=== PATIENT | female | born 1955 | race Caucasian/White ===

== ENCOUNTER 2018-07-28 15:14 | Outpatient (CLI) | payer BC, SELFPAY ==
--- NOTE | 2018-07-28 15:07 | DI.RAD_ITS ---
SYMPTOM/DIAGNOSIS: COUGH R/O PNA, H/O COPD, ACUTE BRONCHITIS WITH BRONCHOSPASM J20.9 CHEST X-RAY: PA and lateral. Comparison is 06/18/13 Heart size and pulmonary vasculature are within normal limits. The lungs are clear and well expanded. No effusions or pneumothoraces are identified. There are degenerative changes seen in the spine. IMPRESSION: No acute pulmonary process.
== END 2018-07-28 15:34 ==
PROVIDERS: PCP Nurse Practitioner Family; Visit Provider Nurse Practitioner Family
DX: R05 Cough (principal); J20.9 Acute bronchitis, unspecified; J44.9 Chronic obstructive pulmonary disease, unspecified
CPT/HCPCS: 71046

== ENCOUNTER 2018-11-02 08:50 | Emergency (ER) | payer MEDICARE, BC, SELFPAY ==
[2018-11-02 08:54] VITALS: BP 142/79; PULSE 86; RESP 18; TEMP 36.5; O2SAT 96
--- NOTE | 2018-11-02 09:36 | ED.GENADUL_ITS ---
Discharge Plan Disposition Patient Disposition: HOME Discharge Details Chief Complaint: Allergic Clinical Impression: Pruritic rash, Allergic reaction Primary Care Provider: Jie Thorpe ED Provider: Gray Roque Home Meds and New Rx's Prescriptions: New prednisone 20 mg tablet 40 mg PO DAILY Qty: 8 RF: 0 epinephrine [EpiPen] 0.3 mg/0.3 mL auto-injector 0.3 mg IM ONCE PRN (Reason: anaphylaxis) Qty: 1 RF: 0 Continued aspirin [Aspir-81] 81 MG tablet,delayed release (DR/EC) 81 mg PO DAILY RF: 0 multivitamin [Daily Vitamin] 1 EACH tablet 1 ea PO DAILY RF: 0 Probiotic 1 EACH capsule 1 ea PO DAILY RF: 0 albuterol sulfate [ProAir HFA] 8.5 GM HFA aerosol inhaler 1 - 2 puff Inhalation Q4-6H PRN Qty: 1 RF: 3 Symbicort 10.2 GM HFA aerosol inhaler 2 puff Inhalation BID Qty: 3 RF: 3 omeprazole 20 mg capsule,delayed release(DR/EC) 20 mg PO DAILY Qty: 90 RF: 3 atorvastatin 40 mg tablet 40 mg PO DAILY Qty: 90 RF: 3 Ultima [place] D3 capsule 2 cap PO DAILY RF: 0 diphenhydramine HCl [Benadryl] 25 mg Capsule 25 mg PO Q4H PRNRF: 0 Discontinued ranitidine HCl 150 mg tablet 150 mg PO BID Qty: 60 RF: 0 Shingrix (PF) 50 mcg/0.5 mL suspension for reconstitution 50 mcg IM .COMPLEX Qty: 1 RF: 1 loratadine 10 MG tablet 10 mg PO DAILY RF: 0 Discharge Instructions Instructions: Acute Rash (ED), General Allergic Reaction (ED) Additional Instructions: Please take prednisone as prescribed. Use epinephrine as prescribed for severe anaphylaxis. Stop taking ranitidine. Should not be given shingles immunization until further testing is performed. Please contact your primary care physician to arrange follow-up be seen on Saturday or Saturday. Return to the ER immediately for any worsening or new concerning symptoms. Referrals: Jie Thorpe NP [Primary Care Provider] - Discharge Data Discharge Date/Time-TO BE ENTERED AT DEPARTURE: 11/02/18 10:02 Medical Decision Making 63-year-old female presents 5 days status post receiving shingles vaccination and also starting ranitidine with rash that she has had for the past 4 days. Rash is severely pruritic, localized diffusely to her arms, back, abdomen chest, head, legs. No oropharyngeal swelling, shortness of breath or wheeze. She otherwise feels well. No fever. Unclear etiology for rash. Consider reaction to shingles vaccination versus allergic reaction to ranitidine. Patient has had an allergic reaction to ranitidine in the past. Patient was instructed to stop ranitidine and hold any additional shingles vaccination until further testing can be performed. Patient will be started on prednisone 60 mg today and continued on 40 mg for the next 4 days. She was instructed to follow-up with her primary care physician on Saturday. She understands importance of timely follow-up. She also understands that she should return to the emergency department immediately should she have any worsening symptoms including shortness of breath or swelling in her mouth or throat. He was prescribed an EpiPen and I discussed use with her. Usual customary discharge instructions were provided. HPI General Mode of arrival: ambulatory . Date/Time Provider Initiated Documentation: 11/02/18 09:16 . Limitations to Documentation: no limitations . Information obtained by: patient . HPI Narrative: 63-year-old female presents 5 days status post receiving shingles vaccination and also starting ranitidine with cc rash that she has had for the past 4 days. Rash is red and severely pruritic, localized diffusely to her arms, back, abdomen chest, head, legs. No modifiers. No associated swelling of the lips, mouth or throat. No difficulty swallowing. No shortness of breath or wheeze. No nausea or vomiting. No fever. Related Data Home Medications Medication Instructions Recorded Confirmed aspirin [Aspir-81] 81 mg PO DAILY tab 12/15/12 11/03/18 multivitamin [Daily Vitamin] 1 ea PO DAILY 07/15/14 11/03/18 Probiotic 1 ea PO DAILY 05/25/16 11/03/18 Ultima [place] D3 2 cap PO DAILY 08/14/16 11/03/18 Symbicort 2 puff INHALATION BID #3 inhaler 12/05/17 11/03/18 albuterol sulfate [ProAir HFA] 1 - 2 puff INHALATION Q4-6H PRN #1 12/05/17 11/03/18 inhaler omeprazole 20 mg capsule,delayed 20 mg PO DAILY #90 tab 07/11/18 11/03/18 release atorvastatin 40 mg tablet 40 mg PO DAILY #90 tab-cap 09/05/18 11/03/18 diphenhydramine HCl [Benadryl] 25 mg PO Q4H PRN 11/02/18 11/03/18 epinephrine [EpiPen] 0.3 mg IM ONCE PRN #1 each 11/02/18 11/03/18 prednisone 40 mg PO DAILY #8 tab 11/02/18 11/03/18 Previous Rx's Medication Instructions Recorded Symbicort 2 puff INHALATION BID #3 inhaler 12/05/17 albuterol sulfate [ProAir HFA] 1 - 2 puff INHALATION Q4-6H PRN #1 12/05/17 inhaler omeprazole 20 mg capsule,delayed 20 mg PO DAILY #90 tab 07/11/18 release atorvastatin 40 mg tablet 40 mg PO DAILY #90 tab-cap 09/05/18 epinephrine [EpiPen] 0.3 mg IM ONCE PRN #1 each 11/02/18 prednisone 40 mg PO DAILY #8 tab 11/02/18 Allergies Allergy/AdvReac Type Severity Reaction Status Date / Time Sulfa (Sulfonamide Allergy Intermediate Itching Unverified 11/03/18 10:28 Antibiotics) ranitidine Allergy Hives Unverified 11/03/18 10:28 varicella-zoster immune Allergy ? hives Unverified 11/03/18 10:28 globulin (h montelukast [From Singulair] AdvReac Unverified 11/03/18 10:28 METALS Allergy Intermediate RASH Uncoded 11/03/18 10:28 General Stated Complaint: Allergic JEWEL: 3 Review of Systems Review of Systems All systems reviewed & are unremarkable except as noted in HPI and below Constitutional Denies fever(s) ENT Denies dysphagia Cardiovascular Denies dyspnea Respiratory Denies dyspnea Gastrointestinal Denies dysphagia Integumentary/Breasts Reports rash PFSH Social History Smoking/Tobacco Use Status: Former Tobacco Use Quit Date: 12/24/08 Pack-years: 46 Alcohol Intake: current Alcohol Intake frequency: 0-2 drinks per day Drug use: Never Substance use type: does not use Household members: spouse Pets and animals: No Sexually active: No Current gender identity: female Do you feel safe in your relationship?: Yes Exam Const General: cooperative and no acute distress HENMT Mouth: oral mucosae normal and moist mucous membranes Throat: posterior oropharynx normal Eyes Conjunctivae: normal conjunctivae Sclera: normal sclerae Neck Neck: trachea midline and supple Resp Auscultation: clear to auscultation bilaterally, no rales, no rhonchi and no wheezes Cardio Jugular venous pressure: no JVD Rate: regular rate and not tachycardic Rhythm: regular rhythm Skin Rashes: rashes noted (red hives on arms, legs, and torso) Neuro General: alert, awake and tone normal Extrem General: no edema Left upper extremity: shoulder/upper arm (no fluctuance or induration at immunization injection site) Course Vital Signs Temperature 36.5 C 11/02/18 08:54 Pulse 86 11/02/18 08:54 Respiratory Rate 18 11/02/18 08:54 Blood Pressure 142/79 H 11/02/18 08:54 Pulse Oximetry 96 11/02/18 08:54 Temperature 36.5 C 11/02/18 08:54 Temperature Source Temporal Artery Scan 11/02/18 08:54 Pulse 86 11/02/18 08:54 Respiratory Rate 18 11/02/18 08:54 Respiratory Effort Non-Labored 11/02/18 09:01 Respiratory Pattern Normal 11/02/18 09:01 Blood Pressure 142/79 H 11/02/18 08:54 Blood Pressure Position Sitting 11/02/18 08:54 Pulse Oximetry 96 11/02/18 08:54 Oxygen Delivery Method Room Air 11/02/18 08:54 Oxygen Flow Rate 0 11/02/18 08:54 Pain Level 0 11/02/18 08:54
[2018-11-02] MEDS: predniSONE 20 MG TAB 60 MG PO (09:40)
[2018-11-02 10:03] VITALS: BP 141/73; PULSE 90; RESP 18; O2SAT 94
--- NOTE | 2018-11-03 08:10 | PDOC.ERCMPRO ---
Care Management Progress Note 11/03-Dr. Connor Roque requested assistance with a PCP (Maurilio) f/u on Saturday/Saturday for allergic reaction. Referral faxed to [facility] this am.
== END 2018-11-02 10:02 | disposition home or self-care (01) ==
PROVIDERS: Emergency Provider Student in an Organized Health Care Education/Training Program; PCP Nurse Practitioner Family
DX: L29.9 Pruritus, unspecified (principal); T78.40XA Allergy, unspecified, initial encounter
CPT/HCPCS: 99283; J7512

== ENCOUNTER 2018-11-11 00:27 | Outpatient (CLI) | payer MEDICARE, BC, SELFPAY ==
--- NOTE | 2018-11-11 15:25 | DI.MAMMO_ITS ---
SYMPTOM/DIAGNOSIS: SCREENING, Z12.31 MAMMOGRAMS: Mammograms were interpreted according to the usual protocol including computer analysis with CAD system, tomosynthesis and C view imaging. Comparison is made with prior examinations. Breast density, Category B. No suspicious masses or microcalcifications are seen. There is no definite evidence of malignancy. IMPRESSION: Negative mammogram. Routine screening is recommended. Category 1. MQSA ASSESSMENT OF FINDINGS: Negative. Category 1. Patient will receive a letter notifying them of these results. BI-RADS category B. There are scattered areas of fibroglandular density.
--- NOTE | 2018-11-11 15:26 | DI.DEXA_ITS ---
SYMPTOM/DIAGNOSIS: F/U OSTEOPENIA, M85.88 DEXA SCAN: Routine examination. Comparison is made with 2010. The lateral view of the spine shows no compression deformities. Evaluation of the left hip shows a total T score of -2.1 and a Z score of -0.9. This compares with a total T score of -1.7 from 2010. This is consistent with osteopenia and an increased fracture risk. Evaluation of the lumbar spine shows a total T score of -2.3 and a Z score of -0.6. This compares with a total T score of -1.6 from 2010. This is also consistent with osteopenia. IMPRESSION: Osteopenia in the lumbar spine and left hip as described above.
== END 2018-11-11 00:47 ==
PROVIDERS: PCP Nurse Practitioner Family; Visit Provider Nurse Practitioner Family
DX: Z12.31 Encounter for screening mammogram for malignant neoplasm of breast (principal); M85.88 Other specified disorders of bone density and structure, other site
CPT/HCPCS: 77063; 77067; 77080

== ENCOUNTER 2019-04-24 08:34 | Outpatient (CLI) | payer MEDICARE, BC, SELFPAY ==
[2019-04-24 09:34] LABS: Anion Gap 10.2 mmol/L (3-11); BUN 15 mg/dL (7-18); CO2 26.8 mmol/L (21.0-32.0); CREATININE 0.62 mg/dL (0.55-1.02); Calcium 8.8 mg/dL (8.5-10.1); Calculated LDL 108 mg/dL; Chloride 105 mmol/L (98-107); Cholesterol 175 mg/dL (50-200); Glucose 98 mg/dL (70-100); HDL Cholesterol 42 mg/dL (40-60); Potassium 4.2 mmol/L (3.5-5.1); Sodium 142 mmol/L (136-145); Triglyceride 128 mg/dL (30-150)
[2019-04-27 11:52] LABS: HIV-1/2 Ag & Ab Screen Negative (NEGAT)
== END 2019-04-24 08:54 ==
PROVIDERS: PCP Nurse Practitioner Family; Visit Provider Nurse Practitioner Family
DX: E78.5 Hyperlipidemia, unspecified (principal); Z13.1 Encounter for screening for diabetes mellitus; Z11.4 Encounter for screening for human immunodeficiency virus [HIV]
CPT/HCPCS: 36415; 80048; 80061; 87389

== ENCOUNTER 2019-06-16 16:26 | Outpatient (CLI) | payer MEDICARE, BC, SELFPAY | END 2019-06-16 16:46 | PROVIDERS: PCP Nurse Practitioner Family; Visit Provider Nurse Practitioner Adult Health | DX: R49.0 Dysphonia (principal) | CPT/HCPCS: 36415; 84443 ==

== ENCOUNTER 2019-06-18 05:12 | Emergency (ER) | payer MEDICARE, BC, SELFPAY ==
[2019-06-18 05:19] VITALS: BP 158/84; PULSE 85; RESP 16; TEMP 36.8; O2SAT 96
--- NOTE | 2019-06-18 05:27 | ED.GENADUL_ITS ---
Discharge Plan Disposition Patient Disposition: HOME Condition: Good Discharge Details Chief Complaint: GenMedical Clinical Impression: Calculus of distal right ureter Primary Care Provider: Jie Thorpe ED Provider: Buster Milian Skippers Meds and New Rx's Prescriptions: New Hydrocodone/Apap 5/325, 4 Tab [[place] 5/325, 4 Tabs/Btl] 1 tab PO Q6H PRN (Reason: Pain, Severe) Qty: 4 RF: 0 ibuprofen 600 mg tablet 600 mg PO Q6H PRN (Reason: pain) Qty: 20 RF: 0 ondansetron 4 mg tablet,disintegrating 4 mg PO Q6H PRN (Reason: nausea and vomiting) Qty: 10 RF: 0 tamsulosin 0.4 mg capsule 0.4 mg PO DAILY Qty: 14 RF: 0 Continued aspirin [Aspir-81] 81 MG tablet,delayed release (DR/EC) 81 mg PO DAILY RF: 0 multivitamin [Daily Vitamin] 1 EACH tablet 1 ea PO DAILY RF: 0 Probiotic 1 EACH capsule 1 ea PO DAILY RF: 0 albuterol sulfate [ProAir HFA] 8.5 GM HFA aerosol inhaler 1 - 2 puff Inhalation Q4-6H PRN Qty: 1 RF: 3 atorvastatin 40 mg tablet 40 mg PO DAILY Qty: 90 RF: 3 Symbicort 160-4.5 mcg/actuation HFA aerosol inhaler 2 puff Inhalation BID Qty: 3 RF: 3 epinephrine [EpiPen] 0.3 mg/0.3 mL auto-injector 0.3 mg IM ONCE PRN (Reason: anaphylaxis) Qty: 1 RF: 0 Ultima [place] D3 capsule 2 cap PO DAILY RF: 0 diphenhydramine HCl [Benadryl] 25 mg Capsule 25 mg PO Q4H PRNRF: 0 omeprazole 40 mg capsule,delayed release(DR/EC) 40 mg PO DAILY RF: 0 Discharge Instructions Instructions: Hydrocodone/Acetaminophen (By mouth), Renal Colic (ED) Additional Instructions: You have a 5 mm distal ureteral stone which hopefully will pass on its own over the next couple of days. Please strain your urine. Please take tamsulosin once a day until stone has passed. Ibuprofen every 6 hours for pain. Ondansetron every 6 hours for nausea vomiting. Hydrocodone/acetaminophen if needed for severe pain. Contact Dr. Alaniz Saturday if you have not passed the stone over the weekend. Return to the ED if you develop fever, uncontrolled pain, persistent vomiting. Referrals: Yaw Alaniz MD [ [facility] STAFF PHYSICIAN] - Medical Decision Making Patient most likely with kidney stone. Rule out infection. IV established. Medications given for symptom relief. CBC and chemistry sent. Urinalysis ordered. Stone study ordered. CBC and chemistry are fine. Urine with blood but no evidence of infection. CT scan shows a 5 mm distal ureter stone with hydroureter and nephrosis. Patient much better with Toradol and Zofran. Minimal pain in the back at this point. Patient to be discharged home to follow-up with urology next week if she does not pass the stone over the next couple of days. She is given prescription for Flomax, Motrin, Zofran. Given first dose of Flomax here. Also discharged with 4 [place] tabs from here to use for severe pain. Information sheet on narcotics given and informed consent obtained. Patient instructed not to use Tylenol if taking [place]. Return to ED if fever, uncontrolled pain, vomiting. Lab Data Lab results reviewed: Yes I reviewed the patient's lab results. HPI General Mode of arrival: ambulatory . Date/Time Provider Initiated Documentation: 06/18/19 05:22 . Limitations to Documentation: no limitations . Information obtained by: patient and RN notes reviewed . HPI Narrative: Patient presents to ED with complaint of right low back/flank pain radiating to the front. Pain woke her up out of sleep. This been ongoing for about 3 hours. Severe, sharp, colicky. She has associated nausea, vomiting and diarrhea. She is sweaty and very uncomfortable. She had something similar quite some time ago. Thought to be kidney stone but never actually completely worked up. Denies chest pain or shortness of breath. Denies dysuria or hematuria that she is aware of. Related Data Home Medications Medication Instructions Recorded Confirmed aspirin [Aspir-81] 81 mg PO DAILY tab 12/15/12 06/18/19 multivitamin [Daily Vitamin] 1 ea PO DAILY 07/15/14 06/18/19 Probiotic 1 ea PO DAILY 05/25/16 06/18/19 Ultima [place] D3 2 cap PO DAILY 08/14/16 06/18/19 albuterol sulfate [ProAir HFA] 1 - 2 puff INHALATION Q4-6H PRN #1 04/12/18 10/24/19 inhaler atorvastatin 40 mg tablet 40 mg PO DAILY #90 tab-cap 09/05/18 06/18/19 diphenhydramine HCl [Benadryl] 25 mg PO Q4H PRN 11/02/18 06/18/19 budesonide-formoterol HFA 160 2 puff INHALATION BID #3 inhaler 02/25/19 06/18/19 mcg-4.5 mcg/actuation aerosol inhaler epinephrine 0.3 mg/0.3 mL 0.3 mg IM ONCE PRN #1 each 04/20/19 06/18/19 injection, auto-injector HYDROcodone/APAP 5/325, 4 tab 1 tab PO Q6H PRN #4 tab 06/18/19 [[place] 5/325, 4 tabs/btl] ibuprofen 600 mg PO Q6H PRN #20 tab 06/18/19 omeprazole 40 mg PO DAILY 06/18/19 06/18/19 ondansetron 4 mg PO Q6H PRN #10 tab 06/18/19 tamsulosin 0.4 mg PO DAILY #14 cap 06/18/19 Previous Rx's Medication Instructions Recorded albuterol sulfate [ProAir HFA] 1 - 2 puff INHALATION Q4-6H PRN #1 12/05/17 inhaler atorvastatin 40 mg tablet 40 mg PO DAILY #90 tab-cap 09/05/18 budesonide-formoterol HFA 160 2 puff INHALATION BID #3 inhaler 02/25/19 mcg-4.5 mcg/actuation aerosol inhaler epinephrine 0.3 mg/0.3 mL 0.3 mg IM ONCE PRN #1 each 04/20/19 injection, auto-injector HYDROcodone/APAP 5/325, 4 tab 1 tab PO Q6H PRN #4 tab 06/18/19 [[place] 5/325, 4 tabs/btl] ibuprofen 600 mg PO Q6H PRN #20 tab 06/18/19 ondansetron 4 mg PO Q6H PRN #10 tab 06/18/19 tamsulosin 0.4 mg PO DAILY #14 cap 06/18/19 Allergies Allergy/AdvReac Type Severity Reaction Status Date / Time Sulfa (Sulfonamide Allergy Intermediate Itching Unverified 06/11/19 08:53 Antibiotics) ranitidine Allergy Hives Unverified 06/11/19 08:53 varicella-zoster immune Allergy ? hives Unverified 06/11/19 08:53 globulin (h montelukast [From Singulair] AdvReac Unverified 06/11/19 08:53 METALS Allergy Intermediate RASH Uncoded 06/11/19 08:53 General Stated Complaint: GenMedical JEWEL: 3 Review of Systems Review of Systems Narrative: As documented in HPI otherwise negative as below. Const: no fever, chills, weakness Resp: no cough, SOB, pleuritic pain CV: no CP, diaphoresis, edema, syncope GI: abdominal pain, nausea, vomiting, diarrhea Neuro: no headache, numbness, focal weakness, confusion [facility] Medical History Adult BMI > 30 (Chronic) Alcohol use disorder (Acute) Chronic obstructive pulmonary disease, unspecified (Chronic 11/26/16) Gastroesophageal reflux disease (Chronic) EGD (Dr. Edge) 2010 normal Hyperlipidemia (Chronic 08/30/11) Mild persistent asthma without complication (Chronic 11/26/16) Mixed incontinence urge and stress (Chronic) Obstructive sleep apnea syndrome (Chronic 08/30/11) DR. 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 Félix Bronson, Dermatology, removed 09/2011. Scalp. Surgical History Colonoscopy - MAC (Resolved 08/15/16) History of lateral meniscus repair of left knee (Resolved) History of lateral meniscus repair of right knee (Resolved) Social History Smoking/Tobacco Use Status: Former Tobacco Use Quit Date: 12/24/08 Pack-years: 46 Alcohol Intake: current Alcohol Intake frequency: 0-2 drinks per day Drug use: Never Substance use type: does not use Caregiver/Support person: No Household members: spouse Number of Children: 2 Communication Needs: None Pets and animals: No Sexually active: No Current gender identity: female What type of physical activity do you participate in: other Details: Golfing Duration: other Details: 4 hours per game, once per week Seatbelt use: always Water heater temp set <120 deg: Yes Working smoke detector in home: Yes Fire extinguisher in home: Yes Carbon monox detector in home: Yes Firearms in home: No Do you feel safe at home: Yes Do you feel safe in your relationship?: Yes Exam Narrative Exam Narrative: Vitals: Afebrile. Elevated blood pressure otherwise normal vital signs and pulse oximetry. Const: Obese female unable to sit still, pacing. HEENT: NC/AT. Normal facial exam. Eyes: Normal conjunctiva and sclera. Neck: Supple. Trachea midline. Lungs: Normal respiratory effort. GI: Soft. NT/ND. No guarding or rebound. Back: No CVAT. Neuro: A+O x 3. CN grossly in tact. Good strength and no focal deficit. Ext: No C/C/E. Course Vital Signs Vital signs: Vital Signs Temperature 98.2 F 06/18/19 05:19 Pulse 85 06/18/19 05:19 Respiratory Rate 16 06/18/19 05:19 Blood Pressure 158/84 H 06/18/19 05:19 Pulse Oximetry 96 06/18/19 05:19 Temperature 98.2 F 06/18/19 05:19 Pulse 85 06/18/19 05:19 Respiratory Rate 16 06/18/19 05:19 Respiratory Effort 06/18/19 05:19 Respiratory Depth Normal 06/18/19 05:19 Respiratory Pattern Normal 06/18/19 05:19 Blood Pressure 158/84 H 06/18/19 05:19 Pulse Oximetry 96 06/18/19 05:19 Oxygen Delivery Method Room Air 06/18/19 05:19 Oxygen Flow Rate 0 06/18/19 05:19
[2019-06-18] MEDS: Ketorolac 30 MG/ML VIAL 15 MG IVP (05:30)
[2019-06-18] MEDS: Ondansetron 4 MG/2 ML VIAL IVP (05:31)
[2019-06-18 05:39] LABS: Bilirubin Negative (Negative); Blood Large (Negative); Clarity Clear (Clear); Glucose Negative (Negative); Ketones Negative (Negative); Leukocyte Esterase Negative (Negative); Nitrite Negative (Negative); Specific Gravity 1.025 (1.005-1.025); Urobilinogen 0.2 EU/dL (Up TO 0.2); pH 5.5 (5-8)
[2019-06-18 05:50] LABS: Epithelial Cells Negative HPF (Negative); RBC >50 (0-2); WBC 0-2 HPF (0-5)
[2019-06-18 05:51] LABS: Abs Immature Grans 0.02 k/cumm (0.0-0.09); Absolute Basophil Count 0.05 k/cumm (0.0-0.2); Absolute Eosinophil Count 0.13 k/cumm (0.0-0.7); Absolute Lymphocyte Count 1.47 k/cumm (1.2-3.4); Absolute Monocyte Count 0.48 k/cumm (0.11-0.7); Absolute Neutrophil Count 6.41 k/cumm (1.2-6.7); Basophils % 0.6; Eosinophils % 1.5; HCT 41.8 % (36.0-46.0); Immature Grans % 0.2; Lymphocytes % 17.2; Mean Corp. HGB Concentration 33.5 g/dL (32.0-36.0); Mean Corpuscular Hemoglobin 30.8 pg (27.0-33.0); Mean Corpuscular Volume 92.1 fL (80-95); Mean Platelet Volume 9.6 fL (8.0-11.0); Monocytes % 5.6; Neutrophils % 74.9; Platelet Count 314 x1000/uL (130-400); RBC 4.54 m/cumm (4.00-5.20); RBC Distribution Width 13.9 % (11.7-14.6); White Blood Cell Count 8.56 k/cumm (4.4-10.8)
[2019-06-18 05:51] LABS: Bacteria Negative HPF (Negative); C & S Indicated? No; Casts Negative LPF (Negative); Crystals Negative HPF (Negative); Mucus Negative (Negative); Other Cells Negative (Negative)
[2019-06-18 05:58] LABS: Anion Gap 9.2 mmol/L (3-11); BUN 23 mg/dL (7-18); CO2 27.8 mmol/L (21.0-32.0); CREATININE 0.77 mg/dL (0.55-1.02); Calcium 9.1 mg/dL (8.5-10.1); Chloride 105 mmol/L (98-107); Glucose 135 mg/dL (70-100); Sodium 142 mmol/L (136-145)
--- NOTE | 2019-06-18 05:59 | DI.CT_ITS ---
EXAM: CT RENAL COLIC WO CLINICAL HISTORY: right back/flank pain. TECHNIQUE: The exam was performed according to the usual protocol without contrast. COMPARISON: CHEST FOR PULMONARY EMBOLUS from 10/12/2016 FINDINGS: The liver is intact. The gallbladder is intact. There are no stones or ductal dilatation. The spleen and adrenals are intact. A 5 mm stone is noted in the distal right ureter causing moderate hydronep hrosis. There is no evidence of bowel obstruction. There is no evidence of an acute appendix. There is no evidence of free air or free fluid in the intraperitoneal space. There is no aortic aneurysm. There is no mass or lymphadenopathy. As visualized, the bladder is unremarkable. The reproductive o rgans appear intact. There is no evidence of an acute bony abnormality. The soft tissues are unremar kable. IMPRESSION: A 5 mm stone in the distal right ureter causes moderate hydronephrosis.
--- NOTE | 2019-06-18 06:09 | DI.VRAD_ITS ---
PROCEDURE INFORMATION: Exam: CT Abdomen And Pelvis Without Contrast Exam date and time: 06/18/2019 5:27 AM Clinical history: 63 years old, female; Abdominal pain; Flank; Right; Additional info: Pain x3 hours +/- radiating from front to back TECHNIQUE: Imaging protocol: Computed tomography of the abdomen and pelvis without contrast. Radiation optimization: All CT scans at this facility use at least one of these dose optimization techniques: automated exposure control; mA and/or kV adjustment per patient size (includes targeted exams where dose is matched to clinical indication); or iterative reconstruction. COMPARISON: CT RENAL COLIC WO CONTRAST 09/19/2012 8:38 PM FINDINGS: Liver: No suspicious lesions. Gallbladder and bile ducts: No acute or concerning findings. Pancreas: Unremarkable. Spleen: No suspicious lesions. Adrenals: No suspicious nodule. Kidneys and ureters: 5 mm stone distal right ureter causing moderate hydronephrosis. Stomach and bowel: No inflammed or dilated loops. Appendix: No evidence of appendicitis. Intraperitoneal space: No free air. No significant fluid collection. Vasculature: Unremarkable. Lymph nodes: Unremarkable. Bladder: Unremarkable as visualized. Reproductive: Unremarkable as visualized. Bones/joints: Unremarkable. No acute fracture. Soft tissues: Unremarkable. IMPRESSION: 5 mm stone distal right ureter causing moderate hydronephrosis. Dictated and Authenticated by: Yossi Mejía MD. Ordering:CLARE Goins MD
[2019-06-18 06:39] VITALS: BP 153/71; PULSE 83; RESP 16; O2SAT 96
== END 2019-06-18 06:39 | disposition home or self-care (01) ==
PROVIDERS: Emergency Provider Emergency Medicine; PCP Nurse Practitioner Family
DX: N13.0 Hydronephrosis with ureteropelvic junction obstruction (principal); J44.9 Chronic obstructive pulmonary disease, unspecified; Z87.891 Personal history of nicotine dependence
CPT/HCPCS: 36415; 80048; 96374; 96375; 99284; 74176; 81003; 81015; 85025; J1885; J2405

== ENCOUNTER → 2019-06-25 10:46 | Outpatient (BNVA) | payer MEDICARE, BC, SELFPAY | PROVIDERS: PCP Nurse Practitioner Family; Referring Provider Nurse Practitioner Family; Visit Provider Urology | DX: N20.1 Calculus of ureter (principal) | CPT/HCPCS: 99203; 99213 ==

== ENCOUNTER → 2019-06-26 08:42 | Outpatient (BNVA) | payer MEDICARE, BC, SELFPAY | PROVIDERS: PCP Nurse Practitioner Family; Referring Provider Nurse Practitioner Family; Visit Provider Surgery | DX: K21.9 Gastro-esophageal reflux disease without esophagitis (principal); Z87.891 Personal history of nicotine dependence; G47.33 Obstructive sleep apnea (adult) (pediatric); J44.9 Chronic obstructive pulmonary disease, unspecified; J04.0 Acute laryngitis | CPT/HCPCS: 99202; 99213 ==

== ENCOUNTER 2019-07-02 09:17 | Day surgery (SDC) | payer MEDICARE, BC, SELFPAY ==
[2019-07-02] VITALS (7 sets, daily range): BP systolic 102–142; BP diastolic 58–86; PULSE 83–90; RESP 12–19; TEMP 36.3–36.6; O2SAT 91–96
[2019-07-02] MEDS: Lactated Ringers 1,000 ML 80 ML IV (10:24)
--- NOTE | 2019-07-02 12:24 | DI.RAD_ITS ---
EXAM: XR RETROGRADE IN OR INDICATION: right kidney stone. COMPARISON: No exams were available for comparison TECHNIQUE: 2D digital imaging was performed. FINDINGS: C-arm fluoroscopy was utilized by Dr. Alaniz during retrograde catheterization of the ureter. Please see Dr. Alaniz procedure note. IMPRESSION:
[2019-07-02] MEDS: ceFAZolin 2 GM/50 ML BAG IVPB (13:13)
--- NOTE | 2019-07-02 14:01 | PDOC.DSDIS_ITS ---
Discharge Plan Disposition Patient Disposition: HOME Condition: Stable Discharge Details Reason For Visit: surgery Attending Provider: Yaw Alaniz Primary Care Provider: Jie Thorpe Home Meds and New Rx's Prescriptions: Continued sucralfate 1 gram tablet 1 gm PO QACHS Qty: 90 RF: 12 aspirin [Aspir-81] 81 MG tablet,delayed release (DR/EC) 81 mg PO DAILY RF: 0 multivitamin [Daily Vitamin] 1 EACH tablet 1 ea PO DAILY RF: 0 Probiotic 1 EACH capsule 1 ea PO DAILY RF: 0 albuterol sulfate [ProAir HFA] 8.5 GM HFA aerosol inhaler 1 - 2 puff Inhalation Q4-6H PRN Qty: 1 RF: 3 atorvastatin 40 mg tablet 40 mg PO DAILY Qty: 90 RF: 3 Symbicort 160-4.5 mcg/actuation HFA aerosol inhaler 2 puff Inhalation BID Qty: 3 RF: 3 epinephrine [EpiPen] 0.3 mg/0.3 mL auto-injector 0.3 mg IM ONCE PRN (Reason: anaphylaxis) Qty: 1 RF: 0 Ultima [place] D3 capsule 2 cap PO DAILY RF: 0 loratadine [Allerclear] 10 mg Tablet 10 mg PO DAILY RF: 0 omeprazole 40 mg capsule,delayed release(DR/EC) 40 mg PO DAILY RF: 0 Hydrocodone/Apap 5/325, 4 Tab [[place] 5/325, 4 Tabs/Btl] 1 tab PO Q6H PRN (Reason: Pain, Severe) Qty: 4 RF: 0 ibuprofen 600 mg tablet 600 mg PO Q6H PRN (Reason: pain) Qty: 20 RF: 0 ondansetron 4 mg tablet,disintegrating 4 mg PO Q6H PRN (Reason: nausea and vomiting) Qty: 10 RF: 0 Discontinued tamsulosin 0.4 mg capsule 0.4 mg PO DAILY Qty: 14 RF: 0 Discharge Instructions Additional Instructions: F/U Saturday for stent removal (tell my office pt has string on end of stent) F/U appt with me in 4 to 6 weeks with renal US on same day no need to starin urine Activity:: Activity as Tolerated Shower/Bathe:: 24 hours Diet:: As Tolerated Discharge Orders Discharge Orders: Discharge Order (Routine); Ordered 07/02/19 Ordered By: Yaw Alaniz DS: Diagnosis Discharge Diagnosis (1) Right distal ureteral calculus: Status: Acute
[2019-07-02] MEDS: Omnipaque 300 MG/ML 50 ML BTL (14:08)
[2019-07-02] MEDS: Lidocaine 2% Jelly 11 ML SYR (14:08)
[2019-07-02] MEDS: Phenazopyridine 200 MG TAB PO (15:13)
--- NOTE | 2019-07-03 09:58 | ROE_ITS ---
DATE OF PROCEDURE: July 02, 2019 PREOPERATIVE DIAGNOSIS: Right ureteral stone. POSTOPERATIVE DIAGNOSIS: Same. PROCEDURE: Cystoscopy; right retrograde pyelogram; right semi-rigid ureteroscopy with stone extracti on; insert right ureteral stent. SURGEON: Yaw Alaniz M.D. ANESTHESIA: General. COMPLICATIONS: None. ESTIMATED BLOOD LOSS: Minimal. HISTORY: This is a 63-year-old woman who presented to the Emergency Room with severe right flank andrew n. She was found to have a 5 mm right distal ureteral stone and hydronephrosis. She was managed con servatively, but her stone has not passed. She presents now for stone manipulation. OPERATIVE REPORT: The patient was brought to the operating room on 07/02/19. After successful induct ion of general anesthesia, she was placed in the dorsal lithotomy position. Her genitalia was preppe d and draped. A 22 Stateless rigid cystoscope was passed through the urethra into the bladder. The bladder was inspec prince with a 30-degree lens. The base of the bladder had descended, consistent with a cystocele. The ureteral orifices were ident ified. The right orifice was cannulated with a 6 Stateless access catheter and a retrograde film was ob tained by injecting Omnipaque through the access catheter under fluoroscopic guidance. A distal ureteral stone was outlined. A Glidewire was then advanced through the access catheter and the catheter was removed. The semi-rigid ureteroscope was passed through the urethral meatus and maneuvered into the right uret eral orifice. The distal ureter was somewhat edematous, but ultimately I was able to negotiate the s cope up to the level of a visible stone. The stone was grasped in a Tiana stone basket and removed in its entirety. The stone was sent to Pathology for chemical analysis. Because of the degree of edema, we elected to place a ureteral stent. We chose a 4.8 Stateless variable-length stent and advanced it over the indwel ling wire. The proximal end of the stent was curled in the renal pelvis and the distal end was curle d within the bladder. The safety string was left in place and brought through the urethral meatus. The string was tucked into the patient's vaginal cavity. The stent will be removed in 3 to 5 days. The patient tolerated this procedure well with no complications.
[2019-07-03 20:26] LABS: Source: Right Ureter
== END 2019-07-02 15:50 | disposition home or self-care (01) ==
PROVIDERS: PCP Nurse Practitioner Family; Visit Provider Urology
PROC: (CPT 52352; principal; 2019-07-02 11:45)
DX: N20.1 Calculus of ureter (principal); N81.10 Cystocele, unspecified; J44.9 Chronic obstructive pulmonary disease, unspecified; G47.33 Obstructive sleep apnea (adult) (pediatric); Z87.891 Personal history of nicotine dependence; Z99.89 Dependence on other enabling machines and devices
CPT/HCPCS: 52352; 74420; 82365; J0690; J1885; J2250; Q9967

== ENCOUNTER 2019-08-03 06:15 | Day surgery (SDC) | payer MEDICARE, BC, SELFPAY ==
--- NOTE | 2019-07-31 16:13 | HPE_ITS ---
Date of service: 08/03/19 Assessment and Plan Assessment and plan (1) History of tobacco use disorder: Status: Acute (2) Alcohol use disorder: Status: Acute (3) Adult BMI > 30: Status: Chronic (4) Chronic obstructive pulmonary disease, unspecified: Status: Chronic Qualifiers: COPD type: unspecified COPD Qualified Code(s): J44.9 - Chronic obstructive pulmonary disease, unspecified (5) Gastroesophageal reflux disease: Status: Chronic Qualifiers: Esophagitis presence: esophagitis presence not specified Qualified Code(s): K21.9 - Gastro-esophageal reflux disease without esophagitis (6) Mild persistent asthma without complication: Status: Chronic (7) Obstructive sleep apnea syndrome: Status: Chronic (8) GERD (gastroesophageal reflux disease): Status: Chronic Assessment and plan: Informed consent is obtained for the procedural (explained in simple layman's terms that the pt and/or family could understand) explaining risks vs benefits and alternatives to the procedure and consequences if we do not do the procedure and need/rational for the procedure. Risks include but are not limited to:bleeding, infection, perforation of esophagus, stomach, colon, small intestines, bronchus or trachea, or PTX. This would necessitate emergency surgery to repair the damage w/ possible ostomy; and other associated complications w/ the required surgery. Also complications of anesthesia including aspiration,MD/CVA/. History of Present Illness Consults Consult date: 08/03/19 Narrative: Informed consent is obtained for the procedural (explained in simple layman's terms that the pt and/or family could understand) explaining risks vs benefits and alternatives to the procedure and consequences if we do not do the procedure and need/rational for the procedure. Risks include but are not limited to:bleeding, infection, perforation of esophagus, stomach, colon, small intestines, bronchus or trachea, or PTX. This would necessitate emergency surgery to repair the damage w/ possible ostomy; and other associated complications w/ the required surgery. Also complications of anesthesia including aspiration,MD/CVA/. -also would be advantageous if she stopped drinking ETOH Continue with lifestyle modifications: no alcohol, tobacco products, Aspirin or NSAID's (ibuprofen, Motrin, Naprosyn, aleve, etc), soda pop/any carbonated beverages, caffeine (including tea & chocolate), and acidic foods, (tomatoes, citrus, onions, peppermints) spicy or fried/fatty foods. Do not lie down for 30 minutes after eating, and do not eat 2 hours prior to bedtime. Avoid wearing tight fighting belts/garments. HPI pt has been having problems w/ hoarseness and loosing voice. patricia worse when taking lots. difficulty swallowing small pills. the hoarseness has been ongo ing for several yrs. She has lost her voice for 6wks . She had been on Prilosec for many yrs- omeprazole for 20yrs. She has been trying to wean off of Prilosec. she was off Prilosec when she developed laryngitis. resumed Prilosec a few days ago. and then laryngitis got better. no pain when she swallows. Feels like things are getting stuck. food doesn't get stuck- just pills. she is on asa dialy- no mi or ca she quite smoking 10 yrs ago. [id number] no other nsaids. takes advil on occ. ETOH: x2 cocktails daily. coffee- 2cups in am no wt loss. She thinks she may have had a roughly scope 10+ ago sleep apnea and claustrophobia. passing kidney stone currently. possible sx next week if she does not completely pass it. Review of Systems All systems reviewed & are unremarkable except as noted in HPI and below [facility] Medical History Adult BMI > 30 (Chronic) Alcohol use disorder (Acute) Chronic obstructive pulmonary disease, unspecified (Chronic 11/26/16) Gastroesophageal reflux disease (Chronic) EGD (Dr. Edge) 2010 normal Hyperlipidemia (Chronic 08/30/11) Laryngitis (Acute) Mild persistent asthma without complication (Chronic 11/26/16) Mixed incontinence urge and stress (Chronic) Obstructive sleep apnea syndrome (Chronic 08/30/11) DR. 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 Félix Bronson, Dermatology, removed 09/2011. Scalp. Surgical History Colonoscopy - MAC (Resolved 08/15/16) History of esophagogastroduodenoscopy (EGD) (Chronic) History of lateral meniscus repair of left knee (Resolved) History of lateral meniscus repair of right knee (Resolved) Family History Mother , CVA at age 80. Hyperlipidemia Stroke Father , at 66 y/o (lung cancer); smoker Hyperlipidemia Lung cancer Grandmother Heart disease Maternal Aunt Breast cancer Grandfather Diabetes Daughter Glaucoma IBD (inflammatory bowel disease) Not sure if UC or Crohn's Asthma Social History Smoking/Tobacco Use Status: Former Tobacco Use Quit Date: 12/24/08 Pack-years: 46 Alcohol Intake: current Alcohol Intake frequency: 0-2 drinks per day Alcohol type: hard liquor Drug use: Never Details: CBD gummy, last used 07/01/29 [id number]. Caregiver/Support person: No Household members: spouse Number of Children: 2 Communication Needs: None Pets and animals: No Sexually active: No Current gender identity: female What type of physical activity do you participate in: other Details: Golfing Duration: other Details: 4 hours per game, once per week Seatbelt use: always Water heater temp set <120 deg: Yes Working smoke detector in home: Yes Fire extinguisher in home: Yes Carbon monox detector in home: Yes Firearms in home: No Do you feel safe at home: Yes Do you feel safe in your relationship?: Yes Meds Home Medications and Allergies Home Medications Medication Instructions Recorded Confirmed Type aspirin [Aspir-81] 81 mg PO DAILY tab 12/15/12 07/29/19 History multivitamin [Daily Vitamin] 1 ea PO DAILY 07/15/14 07/29/19 History Probiotic 1 ea PO DAILY 05/25/16 07/29/19 History Ultima [place] D3 2 cap PO DAILY 08/14/16 07/29/19 History albuterol sulfate [ProAir HFA] 1 - 2 puff INHALATION Q4-6H PRN #1 12/05/17 07/29/19 Rx inhaler atorvastatin 40 mg tablet 40 mg PO DAILY #90 tab-cap 09/05/18 07/29/19 Rx epinephrine 0.3 mg/0.3 mL 0.3 mg IM ONCE PRN #1 each 04/20/19 07/29/19 Rx injection, auto-injector ibuprofen 600 mg PO Q6H PRN #20 tab 06/18/19 07/29/19 Rx sucralfate 1 gram tablet 1 gm PO QACHS #90 tab 06/26/19 07/29/19 Rx loratadine [Allerclear] 10 mg PO DAILY 07/02/19 07/29/19 History budesonide-formoterol HFA 160 2 puff INHALATION BID #3 inhaler 07/30/19 Rx mcg-4.5 mcg/actuation aerosol inhaler omeprazole 40 mg capsule,delayed 40 mg PO DAILY #90 cap 07/30/19 Rx release Allergies Allergy/AdvReac Type Severity Reaction Status Date / Time Sulfa (Sulfonamide Allergy Intermediate Itching Unverified 07/29/19 16:07 Antibiotics) ranitidine Allergy Hives Unverified 07/29/19 16:07 varicella-zoster immune Allergy ? hives Unverified 07/29/19 16:07 globulin (h montelukast [From Singulair] AdvReac hyper Unverified 07/29/19 16:07 METALS Allergy Intermediate RASH Uncoded 07/29/19 16:07
[2019-08-03] MEDS: Lactated Ringers 1,000 ML 100 ML IV (07:20)
--- NOTE | 2019-08-03 07:43 | STOM_PTH ---
PATIENT: Cary Brooke LOC: [facility] U#:[id number] AGE/SX: 63/F ROOM: RE08/03/[address]: Sonya Arriola : 1955 BED: DIS: 08/03/2019 SPEC #: [id number] RECD: 08/03/19 12:48 STATUS: ADARSH RE #: [id number] ANGELINA: 08/03/19 07:[address]: Sonya Arriola DEPT: Surgical Specimen RECD BY: Susanna Bundy ENTERED: 08/03/19 12:51 SP TYPE: STOMACH OTHR DR: Jie Thorpe APRN Tissues: 1 - BIOPSY BOWEL 2 - STOMACH BIOPSY 3 - STOMACH BIOPSY 4 - ESOPHAGUS BIOPSY 5 - ESOPHAGUS BIOPSY Procedures: GROSS AND MICRO LEVEL 4 Comments: [id number]
--- NOTE | 2019-08-03 08:02 | W.PM.ENDDOP ---
Date of service: 08/03/19 Time of Service: 08:02 Endoscopy Report DATE OF PROCEDURE: 08/03/19 PRE-OP DIAGNOSIS: gerd POST-OP DIAGNOSIS: other (laryngitis dut to chronic gerd) SURGEON: Sonya Arriola ANESTHESIA: GETA ESTIMATED BLOOD LOSS: 1 PATHOLOGY: other COMPLICATIONS: None PROCEDURE DESCRIPTION: After informed consent was obtained the patient was take to the procedure room and placed in a supine position. Monitors were applied and a time out was done. The patients name, date of , procedure type, allergies to medications and metal in their body was reviewed. A bite block was placed and the patient was sedated. Once sedated and comfortable the gastroscope was advanced through the oropharynx which was grossly normal into the esophagus. The proximal and mid-esophagus were nl. In the distal esophagus there was mild irritation noted. The scope was advanced into the stomach and through the pylorus into the 3rd portion of the duodenum. The duodenum was noted to be nl. Biopsies were done. The scope was retracted back into the stomach and biopsies were done to rule out H. pylori. There were no ulcers. The scope was retroflexed. The cardia and fundus were noted to be normal. There is no hiatal hernia noted. The scope was retracted back into the esophagus and biopsies were done of the GE junction to rule out Bernardo's. The Z line was slt irregular but did not seem to be Bernardo's. the supraglottic area structures were inflamed. The cords themselves were nl. The scope was removed and the patient was woken up and taken back to [facility] in stable condition. Follow up: in office in 2-3 wks stop asa. Continue with lifestyle modifications: no alcohol, tobacco products, Aspirin or NSAID's (ibuprofen, Motrin, Naprosyn, aleve, etc), soda pop/any carbonated beverages, caffeine (including tea & chocolate), and acidic foods, (tomatoes, citrus, onions, peppermints) spicy or fried/fatty foods. Do not lie down for 30 minutes after eating, and do not eat 2 hours prior to bedtime. Avoid wearing tight fitting clothing/ belts change to protonix carafate prn
--- NOTE | 2019-08-03 08:06 | W.PM.DSUDISC ---
Discharge Plan Disposition Patient Disposition: HOME Condition: Good Discharge Details Reason For Visit: EGD and Bx Attending Provider: Sonya Arriola Primary Care Provider: Jie Thorpe Home Meds and New Rx's Prescriptions: New pantoprazole 40 mg tablet,delayed release (DR/EC) 40 mg PO DAILY Qty: 30 RF: 12 Discontinued aspirin [Aspir-81] 81 MG tablet,delayed release (DR/EC) 81 mg PO DAILY RF: 0 omeprazole 40 mg capsule,delayed release(DR/EC) 40 mg PO DAILY Qty: 90 RF: 3 No Action sucralfate 1 gram tablet 1 gm PO QACHS Qty: 90 RF: 12 multivitamin [Daily Vitamin] 1 EACH tablet 1 ea PO DAILY RF: 0 Probiotic 1 EACH capsule 1 ea PO DAILY RF: 0 albuterol sulfate [ProAir HFA] 8.5 GM HFA aerosol inhaler 1 - 2 puff Inhalation Q4-6H PRN Qty: 1 RF: 3 atorvastatin 40 mg tablet 40 mg PO DAILY Qty: 90 RF: 3 epinephrine [EpiPen] 0.3 mg/0.3 mL auto-injector 0.3 mg IM ONCE PRN (Reason: anaphylaxis) Qty: 1 RF: 0 Symbicort 160-4.5 mcg/actuation HFA aerosol inhaler 2 puff Inhalation BID Qty: 3 RF: 3 Ultima [place] D3 capsule 2 cap PO DAILY RF: 0 loratadine [Allerclear] 10 mg Tablet 10 mg PO DAILY RF: 0 ibuprofen 600 mg tablet 600 mg PO Q6H PRN (Reason: pain) Qty: 20 RF: 0 Discharge Instructions Instructions: Gastroesophageal Reflux Disease (GEN) Additional Instructions: Findings:inflammation of airway structures and esohpagus Follow up:Continue with lifestyle modifications: no alcohol, tobacco products, Aspirin or NSAID's (ibuprofen, Motrin, Naprosyn, aleve, etc). Try to avoid : soda pop/any carbonated beverages, caffeine (including tea & chocolate), and acidic foods, (tomatoes, citrus, onions, peppermints) spicy or fried/fatty foods. Do not lie down for 30 minutes after eating, and do not eat 2 hours prior to bedtime. Avoid wearing tight fitting clothing/ belts -stop ASA -stops omeprazole and new Rx for pantoprozole (if insurance will cover. If insurance will not cover- than stay on 40mg omeprazole daily). Use carafate prior to using NSAID's or ETOH, or if having signs and symptoms of reflux. Please call if you develop: fevers >101.5 Nausea or Vomiting Abdominal pain that is not transient DAY SURGERY UNIT POST COLONOSCOPY INSTRUCTIONS 1. Because there will be medication in your system for the next 24 hours, you may feel a little sleepy. Your coordination will be affected. Therefore: a. Do not drive or operate dangerous equipment for 24 hours. b. Do not drink alcohol beverages for 24 hours (not even beer). c. Plan to go home and rest for the day. 2. Generally there are no restrictions on your activity after a day or so has gone by, but you may feel a bit fatigued for a few days. 3 After you arrive home you may have a light meal and return to a normal diet as you can tolerate it without feeling sick to your stomach. 4. After surgery, you may feel pain or discomfort. This should be only transient, but if it persists please contact your doctor. 5. If there are any questions regarding the findings of your procedure, please feel free to contact your doctor. 6. If you are unable to contact your doctor with a problem, contact the hospital at [phone]. 7. Continue all your regular medications unless directed otherwise. I understand the above instructions and have no questions. Signature of Patient or Responsible Adult Escort Date/Time Name of Responsible Adult Escort Signature of Nurse Date/Time Discharge Orders Discharge Orders: Discharge Order (Routine); Ordered 08/03/19 Ordered By: Sonya Arriola DS: Diagnosis Discharge Diagnosis (1) History of tobacco use disorder: Status: Acute (2) Alcohol use disorder: Status: Acute (3) Adult BMI > 30: Status: Chronic (4) Chronic obstructive pulmonary disease, unspecified: Status: Chronic (5) Gastroesophageal reflux disease: Status: Chronic (6) Mild persistent asthma without complication: Status: Chronic (7) Obstructive sleep apnea syndrome: Status: Chronic (8) GERD (gastroesophageal reflux disease): Status: Chronic (9) Supraglottic edema: Status: Acute (10) Laryngitis from reflux of stomach acid: Status: Acute
[2019-08-03 08:10] VITALS: BP 138/81; PULSE 74; RESP 16; TEMP 36.6; O2SAT 96
[2019-08-03 08:30] VITALS: BP 126/77; PULSE 75; RESP 16; TEMP 36.5; O2SAT 96
== END 2019-08-03 08:40 | disposition home or self-care (01) ==
PROVIDERS: PCP Nurse Practitioner Family; Visit Provider Surgery
PROC: 0DJ68ZZ Inspection of Stomach, Via Natural or Artificial Opening Endoscopic (ICD-10-PCS; CPT 43235; principal; 2019-08-03 07:30)
DX: K21.0 Gastro-esophageal reflux disease with esophagitis (principal); K31.89 Other diseases of stomach and duodenum; J44.9 Chronic obstructive pulmonary disease, unspecified; G47.33 Obstructive sleep apnea (adult) (pediatric); Z87.891 Personal history of nicotine dependence
CPT/HCPCS: 43239; 88305; J2250

== ENCOUNTER 2019-08-10 01:00 | Outpatient (CLI) | payer MEDICARE, BC, SELFPAY ==
--- NOTE | 2019-08-10 08:43 | DI.US_ITS ---
EXAM: US RENAL CLINICAL HISTORY: r/o hydronephrosis after ureteroscopy, rt distal ureteral calculus TECHNIQUE: Ultrasound performed using standard protocol. COMPARISON: CT RENAL COLIC WO from 06/18/2019 FINDINGS: The right kidney measures 11.2 cm in length. The left kidney measures 12.8 cm in length. There is no rmal parenchymal thickness and echogenicity. There is an 11 millimeter stone at the upper pole of the right kidney, nonobstructing. The previously noted right hydronephrosis has resolved. The pre void b ladder volume measured 275 cc. There is a 20 cc postvoid residual. The ureteral jets were identified. No bladder stone or mass is seen. IMPRESSION: Resolution of previously noted hydronephrosis. Nonobstructing 11 millimeter stone at the upper pole o f the right kidney.
== END 2019-08-10 01:20 ==
PROVIDERS: PCP Nurse Practitioner Family; Visit Provider Urology
DX: N20.0 Calculus of kidney (principal)
CPT/HCPCS: 76770

== ENCOUNTER → 2019-08-14 13:41 | Outpatient (BNVA) | payer MEDICARE, BC, SELFPAY | PROVIDERS: PCP Nurse Practitioner Family; Referring Provider Nurse Practitioner Family; Visit Provider Urology | DX: N20.1 Calculus of ureter (principal) | CPT/HCPCS: 99213 ==

== ENCOUNTER → 2019-09-02 08:29 | Outpatient (BNVA) | payer MEDICARE, BC, SELFPAY | PROVIDERS: PCP Nurse Practitioner Family; Referring Provider Nurse Practitioner Family; Visit Provider Surgery | DX: K21.9 Gastro-esophageal reflux disease without esophagitis (principal); J38.4 Edema of larynx; Z87.891 Personal history of nicotine dependence; K29.60 Other gastritis without bleeding; T39.395A Adverse effect of other nonsteroidal anti-inflammatory drugs [NSAID], initial encounter | CPT/HCPCS: 99213 ==

== ENCOUNTER 2019-10-19 11:25 | Emergency (ER) | payer MEDICARE, BC, SELFPAY ==
[2019-10-19 11:26] VITALS: BP 151/91; PULSE 100; RESP 18; TEMP 36; O2SAT 95
--- NOTE | 2019-10-19 11:45 | DI.RAD_ITS ---
EXAM: XR HAND RT COMPLETE CLINICAL HISTORY: pain, fall TECHNIQUE: COMPARISON: RIGHT HAND COMPLETE from 02/11/2015 FINDINGS: Three views were obtained. There are degenerative changes of the IP joints. No acute fracture seen. IMPRESSION:
--- NOTE | 2019-10-19 11:45 | DI.RAD_ITS ---
EXAM: XR WRIST RT COMPLETE CLINICAL HISTORY: fall, injury TECHNIQUE: COMPARISON: No exams were available for comparison FINDINGS: Three views were obtained. Carpal alignment appears within normal limits. There are mild degenerati ve changes of the carpus. No acute fracture seen. IMPRESSION:
--- NOTE | 2019-10-19 11:45 | DI.RAD_ITS ---
EXAM: XR SHOULDER RT COMPLETE 2+V CLINICAL HISTORY: pain, injury TECHNIQUE: COMPARISON: No exams were available for comparison FINDINGS: Three views were obtained. There is no evidence of a fracture or dislocation. IMPRESSION:
--- NOTE | 2019-10-19 11:45 | DI.RAD_ITS ---
EXAM: XR ELBOW RT COMPLETE CLINICAL HISTORY: pain, fall TECHNIQUE: COMPARISON: XR WRIST RT COMPLETE from 10/19/2019 FINDINGS: Three views were obtained. There is prominent anterior and posterior fat pad of the humerus. Findin gs suggest an intra-articular effusion or hemarthrosis. On a single view there is suggestion of defo rmity of the radial head, radial head fracture is suspected. Appropriate follow-up films suggested. IMPRESSION:
--- NOTE | 2019-10-19 11:52 | W.ED.GENAD ---
Discharge Plan Disposition Patient Disposition: HOME Condition: Stable Discharge Details Chief Complaint: Orthopedic Clinical Impression: Fracture, radius, head Primary Care Provider: Jie Thorpe ED Provider: Tamia Tijerina Home Meds and New Rx's Prescriptions: Continued sucralfate 1 gram tablet 1 gm PO QACHS Qty: 90 RF: 12 multivitamin [Daily Vitamin] 1 EACH tablet 1 ea PO DAILY RF: 0 Probiotic 1 EACH capsule 1 ea PO DAILY RF: 0 atorvastatin 40 mg tablet 40 mg PO DAILY Qty: 90 RF: 3 epinephrine [EpiPen] 0.3 mg/0.3 mL auto-injector 0.3 mg IM ONCE PRN (Reason: anaphylaxis) Qty: 1 RF: 0 budesonide-formoterol [Symbicort] 160-4.5 mcg/actuation HFA aerosol inhaler 2 puff Inhalation BID Qty: 3 RF: 3 albuterol sulfate [ProAir HFA] 90 mcg/actuation HFA aerosol inhaler 1 - 2 puff Inhalation Q4-6H PRN Qty: 1 RF: 3 Ultima [place] D3 capsule 2 cap PO DAILY RF: 0 loratadine [Allerclear] 10 mg Tablet 10 mg PO DAILY RF: 0 pantoprazole 40 mg tablet,delayed release (DR/EC) 40 mg PO DAILY Qty: 30 RF: 12 Discharge Instructions Instructions: Arm Fracture in Adults (ED) Additional Instructions: Rest. Activities as tolerated. Elevate injury to prevent swelling. Splint and sling as discussed Ice to the area of discomfort for 15 min. 3-5 times daily. Tylenol every 6 hours for soreness if needed over the counter for comfort. Followup with orthopedic doctor as discussed for reevaluation Return for any worsening or concerns sooner if needed. Referrals: Sukhwinder Rubin MD [ [facility] STAFF PHYSICIAN] - Discharge Data Discharge Date/Time-TO BE ENTERED AT DEPARTURE: 10/19/19 14:05 Medical Decision Making Very pleasant 64-year-old patient who presents after a fall on ice prior to arrival. Patient predominantly concerned with right arm injury. Patient does report striking her head but lacks loss of consciousness or any associated head injury symptoms at this time. We did discuss imaging of head and neck but she does not feel this is necessary. She does have benign physical exam including her head and neck at this time. Will defer any imaging of head and encouraged observation for any head injury symptoms. Patient has very evident right arm injuries to her shoulder, elbow wrist and very mild tenderness of the hand. Limited range of motion of the arm. Position of comfort held at 90 degrees across her chest. Patient has no associated rib injuries or chest complaints. Normal back exam. Normal abdominal exam. No left upper arm or bilateral lower extremity injuries reported. Will provide Tylenol for patient's comfort. X-rays ordered. Patient with positive fracture noted on his x-ray at the radial head. No other evident bony fractures present on imaging of the right arm today. Dr. Cristobal did discuss this with Dr. Rubin over the phone of orthopedics who recommends posterior splint and sling follow-up in the office. He had reviewed the x-rays. Posterior splint placed for support. Sling provided. [place] encouraged. Orthopedic referral provided. Patient feels comfortable with plan of care The patient was stable and requested discharge. Prior to discharge, my usual and customary return precautions were reviewed with the patient - this included follow-up instructions and reasons to return to the Emergency Department if conditions worsens, does not improve as expected, or other new concerns arise. HPI General Date/Time Provider Initiated Documentation: 10/19/19 11:36. HPI Narrative: This is a 64-year-old patient who is quite pleasant presenting to the emergency room after a slip and fall on ice prior to arrival. Patient reports she slipped on snow on top of ice falling onto her right side. She does report striking her head. Patient denies loss of consciousness. Reports no headache, dizziness, vision change, blurred vision with double vision or nausea at this time. Patient is not concerned with the possibility of head injury. Patient denies use of blood thinner. Patient denies neck and back pain. Patient only concerned with right arm injury. Patient reports difficulty moving right arm due to pain reported in the shoulder the elbow and the wrist. Patient reports pain with range of motion of hand. No open wounds. Denies chest pain no difficulty beating shortness breath or wheezing. Denies abdominal pain. Denies any other extremity injury. Denies numbness, tingling or weakness. Related Data Home Medications Medication Instructions Recorded Confirmed multivitamin [Daily Vitamin] 1 ea PO DAILY 07/15/14 10/19/19 Probiotic 1 ea PO DAILY 05/25/16 10/19/19 Ultima [place] D3 2 cap PO DAILY 08/14/16 10/19/19 atorvastatin 40 mg tablet 40 mg PO DAILY #90 tab-cap 09/05/18 10/19/19 epinephrine 0.3 mg/0.3 mL 0.3 mg IM ONCE PRN #1 each 04/20/19 10/19/19 injection, auto-injector sucralfate 1 gram tablet 1 gm PO QACHS #90 tab 06/26/19 10/19/19 loratadine [Allerclear] 10 mg PO DAILY 07/02/19 10/19/19 budesonide-formoterol HFA 160 2 puff INHALATION BID #3 inhaler 07/30/19 10/19/19 mcg-4.5 mcg/actuation aerosol inhaler pantoprazole 40 mg PO DAILY #30 tab 08/03/19 10/19/19 albuterol sulfate 90 mcg/actuation 1 - 2 puff INHALATION Q4-6H PRN #1 09/04/19 10/19/19 aerosol inhaler inhaler Previous Rx's Medication Instructions Recorded atorvastatin 40 mg tablet 40 mg PO DAILY #90 tab-cap 09/05/18 epinephrine 0.3 mg/0.3 mL 0.3 mg IM ONCE PRN #1 each 04/20/19 injection, auto-injector sucralfate 1 gram tablet 1 gm PO QACHS #90 tab 06/26/19 budesonide-formoterol HFA 160 2 puff INHALATION BID #3 inhaler 07/30/19 mcg-4.5 mcg/actuation aerosol inhaler pantoprazole 40 mg PO DAILY #30 tab 08/03/19 albuterol sulfate 90 mcg/actuation 1 - 2 puff INHALATION Q4-6H PRN #1 09/04/19 aerosol inhaler inhaler Allergies Allergy/AdvReac Type Severity Reaction Status Date / Time Sulfa (Sulfonamide Allergy Intermediate Itching Verified 10/19/19 11:34 Antibiotics) ranitidine Allergy Hives Verified 10/19/19 11:34 varicella-zoster immune Allergy ? hives Verified 10/19/19 11:34 globulin (h montelukast [From Singulair] AdvReac hyper Verified 10/19/19 11:34 METALS Allergy Intermediate RASH Uncoded 10/19/19 11:34 General Stated Complaint: Orthopedic JEWEL: 3 Review of Systems All systems reviewed & are unremarkable except as noted in HPI and below Constitutional Constitutional: Denies fatigue, Denies headache(s) and Denies malaise Eyes Eyes: Denies blurry vision ENT Ears, Nose, Mouth, and Throat: Denies otalgia, Denies headache(s), Denies nasal discharge and Denies neck pain Cardiovascular Cardiovascular: Denies chest pain Respiratory Respiratory: Denies pain on inspiration Gastrointestinal Gastrointestinal: Denies abdominal pain Musculoskeletal Musculoskeletal: Denies back pain, Denies neck pain, Denies numbness and Denies tingling Integumentary/Breasts Skin/Breast: Denies wounds Neurologic Neurologic: Denies headache(s), Denies numbness and Denies tingling Endocrine Endocrine: Denies fatigue [facility] Medical History Adult BMI > 30 (Chronic) Alcohol use disorder (Acute) Chronic obstructive pulmonary disease, unspecified (Chronic 11/26/16) Gastritis due to nonsteroidal anti-inflammatory drug (Acute) Gastroesophageal reflux disease (Chronic) EGD (Dr. Edge) 2010 normal GERD (gastroesophageal reflux disease) (Chronic) Endoscopy 07/2019 Hyperlipidemia (Chronic 08/30/11) Laryngitis (Acute) Laryngitis from reflux of stomach acid (Acute) Mild persistent asthma without complication (Chronic 11/26/16) Mixed incontinence urge and stress (Chronic) Obstructive sleep apnea syndrome (Chronic 08/30/11) DR. 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 Félix Bronson, Dermatology, removed 09/2011. Scalp. Supraglottic edema (Acute) Surgical History Colonoscopy - MAC (Resolved 08/15/16) History of esophagogastroduodenoscopy (EGD) (Chronic ~08/03/19) History of lateral meniscus repair of left knee (Resolved) History of lateral meniscus repair of right knee (Resolved) Social History Smoking/Tobacco Use Status: Former Tobacco Use Quit Date: 12/24/08 Pack-years: 46 Tobacco: How many years used: 10 Alcohol Intake: current Alcohol Intake frequency: 0-2 drinks per day Alcohol type: hard liquor Drug use: Never Details: CBD guminez, last used 07/01/29 [id number]. Caregiver/Support person: No Household members: spouse Number of Children: 2 Communication Needs: None Pets and animals: No Sexually active: No Current gender identity: female What type of physical activity do you participate in: other Details: Golfing Duration: other Details: 4 hours per game, once per week Seatbelt use: always Water heater temp set <120 deg: Yes Working smoke detector in home: Yes Fire extinguisher in home: Yes Carbon monox detector in home: Yes Firearms in home: No Do you feel safe at home: Yes Do you feel safe in your relationship?: Yes Exam Narrative Exam Narrative: CONST: Healthy appearing patient, uncomfortable s. Well hydrated. Alert and orientedx 3 HENMT: Head nomocephalic, normal to inspection. Atraumatic. Hearing grossly normal. EYES: General normal appearance. Alignment normal. Eyelids normal. Conjunctiva normal. NECK: Normal visual inspection. FROM. Trachea midline. No Midline tenderness. CHEST: Normal insepection of the chest. No palpable rib tenderness bilaterally. RESP: Normal respiratory effort. Speaking full sentences. No cough. No audible wheezing. No retractions. Breath sounds clear, full and equal bilaterally. No wheezing, rhonchi or rales. CARDIO: No JVD. Regular rate and rhythm MUSCULOSKELETAL: Right arm: No focal clavicle tenderness. Moderate shoulder pain with palpation anteriorly and posteriorly. No obvious deformity. Mild humeral tenderness. Moderate elbow tenderness. Limited supination pronation and range of motion of the entire right arm. Mild forearm pain with palpation, moderate wrist pain with palpation. Palpable tenderness of the fourth digit on the right hand. Sensation intact distally. No open wounds. Pulses intact distally. Left arm exam benign. Lower extremity exam benign SKIN: Normal. Dry. No rashes. No bruising Course Vital Signs Vital signs: Vital Signs Temperature 36.0 C L 10/19/19 11:26 Pulse 100 H 10/19/19 11:26 Respiratory Rate 18 10/19/19 11:26 Blood Pressure 151/91 H 10/19/19 11:26 Pulse Oximetry 95 10/19/19 11:26 Temperature 36.0 C L 10/19/19 11:26 Temperature Source Skin 10/19/19 11:26 Pulse 100 H 10/19/19 11:26 Respiratory Rate 18 10/19/19 11:26 Respiratory Effort 10/19/19 11:32 Blood Pressure 151/91 H 10/19/19 11:26 Blood Pressure Position Standing 10/19/19 11:26 Pulse Oximetry 95 10/19/19 11:26 Oxygen Delivery Method Room Air 10/19/19 11:26 Oxygen Flow Rate 0 10/19/19 11:26 Pain Level 9 10/19/19 11:26 Comment 10/19/19 11:26 Procedures Orthopedic Splinting/Casting Injury #1: Side: right Upper Extremity Injury Location: elbow Upper Extremity Immobilizer: sling/shoulder immobilizer and posterior splint
[2019-10-19] MEDS: Acetaminophen 500 MG TAB 1000 MG PO (11:56)
--- NOTE | 2019-10-19 12:30 | DI.RAD_ITS ---
EXAM: XR FOREARM RT CLINICAL HISTORY: pain, injury TECHNIQUE: COMPARISON: No exams were available for comparison FINDINGS: Two views were obtained. No fracture is seen. IMPRESSION:
== END 2019-10-19 14:05 | disposition home or self-care (01) ==
PROVIDERS: Emergency Provider Physician Assistant; PCP Nurse Practitioner Family
DX: S52.124A Nondisplaced fracture of head of right radius, initial encounter for closed fracture (principal); W00.0XXA Fall on same level due to ice and snow, initial encounter
CPT/HCPCS: 24650; 73030; 73080; 73090; 73110; 73130; L3650

== ENCOUNTER 2019-10-28 09:25 | Outpatient (CLI) | payer MEDICARE, BC, SELFPAY ==
--- NOTE | 2019-10-28 08:45 | DI.RAD_ITS ---
EXAM: XR ELBOW RT COMPLETE CLINICAL HISTORY: F/U FRACTURE. TECHNIQUE: 2D digital imaging was performed. COMPARISON: XR ELBOW RT COMPLETE from 10/19/2019 FINDINGS: BONES: There is a lucency seen through the radial head suspicious for nondisplaced fracture. There h as been no change in alignment compared to the prior examination. No bony destructive lesion is seen . JOINTS: The elbow is normally aligned. There is a joint effusion present. SOFT TISSUE: Normal. IMPRESSION: Findings suspicious for nondisplaced radial head fracture. Joint effusion. DATA REPOSITORY: RADIATION DOSE DELIVERED:
== END 2019-10-28 09:45 ==
PROVIDERS: PCP Nurse Practitioner Family; Referring Provider Nurse Practitioner Family; Visit Provider Orthopaedic Surgery
DX: S52.123A Displaced fracture of head of unspecified radius, initial encounter for closed fracture; W01.0XXA Fall on same level from slipping, tripping and stumbling without subsequent striking against object, initial encounter
CPT/HCPCS: 99201; 99213; 73080

== ENCOUNTER 2020-01-13 14:15 | Outpatient (CLI) | payer MEDICARE, BC, SELFPAY ==
--- NOTE | 2020-01-13 11:15 | DI.RAD_ITS ---
EXAM: XR ELBOW RT LIMITED CLINICAL HISTORY: F/U FRACTURE. TECHNIQUE: 2D digital imaging was performed. COMPARISON: CR XR ELBOW RT COMPLETE from 10/28/2019 FINDINGS: BONES: There has been no change in alignment of the radial head fracture. No bony destructive lesion is seen. JOINTS: The elbow is normally aligned. If that SOFT TISSUE: Normal. IMPRESSION: Stable right radial head fracture. DATA REPOSITORY: RADIATION DOSE DELIVERED:
== END 2020-01-13 14:35 ==
PROVIDERS: PCP Nurse Practitioner Family; Referring Provider Nurse Practitioner Family; Visit Provider Orthopaedic Surgery
DX: S52.121D Displaced fracture of head of right radius, subsequent encounter for closed fracture with routine healing; X58.XXXD Exposure to other specified factors, subsequent encounter
CPT/HCPCS: 99213; 73070

== ENCOUNTER 2020-08-24 01:16 | Outpatient (CLI) | payer MEDICARE, BC, SELFPAY ==
--- NOTE | 2020-08-24 12:30 | DI.MAMMO_ITS ---
EXAM: MAMMO SCREENING CLINICAL HISTORY: screening,Z12.39 TECHNIQUE: Mammograms were interpreted according to the usual protocol including computer analysis w [place] CAD system, tomosynthesis and C-view imaging. COMPARISON: FINDINGS: The breasts are of moderate density with fairly symmetrical distribution of fibroglandular tissue. N o dominant mass or clumped microcalcification is identified in either breast. The current examinatio n is compared with previous examinations including October 2018 and there has been no gross interval ch roberto in appearance in comparison with the prior studies. IMPRESSION: No specific evidence of malignancy at this time. Routine screening examinations are suggested at yea rly intervals due to the family history of breast carcinoma. BI-RADS Category 1 - Negative Breast Density - Category B - Scattered areas of fibroglandular density
== END 2020-08-24 01:36 ==
PROVIDERS: PCP Nurse Practitioner Family; Visit Provider Nurse Practitioner Family
DX: Z12.31 Encounter for screening mammogram for malignant neoplasm of breast (principal); Z80.3 Family history of malignant neoplasm of breast
CPT/HCPCS: 77063; 77067

== ENCOUNTER 2020-09-15 10:04 | Outpatient (CLI) | payer MEDICARE, BC, SELFPAY ==
--- NOTE | 2020-09-15 09:30 | DI.RAD_ITS ---
EXAM: XR STANDING ALIGNMENT and XR knee RT and LT 2 V CLINICAL HISTORY: knee pain. TECHNIQUE: 2D digital imaging was performed. COMPARISON: Priors available for comparison. FINDINGS: The hips are grossly unremarkable. There is moderately severe tricompartment osteoarthritis of the r ight knee. The findings are characterized by joint space narrowing, subchondral sclerosis and periar ticular spurring. The findings are most marked in the medial femoral tibial joint space. There does appear to be a loose body in the lateral femoral tibial joint. There is a small joint effusion. Mo derately severe degenerative changes are also noted in all 3 joint compartments of the left knee. Th e findings are most marked in the medial femoral tibial joint. There is a small joint effusion. The right lower extremity measures 83.2 cm. The left lower extremity measures 82 cm. IMPRESSION: Marked bilateral osteoarthritis of the knees. DATA REPOSITORY: RADIATION DOSE DELIVERED:
== END 2020-09-15 10:24 ==
PROVIDERS: PCP Nurse Practitioner Family; Referring Provider Nurse Practitioner Family; Visit Provider Student in an Organized Health Care Education/Training Program
DX: M17.11 Unilateral primary osteoarthritis, right knee; M17.12 Unilateral primary osteoarthritis, left knee
CPT/HCPCS: 99203; 99214; 73560; 77073

== ENCOUNTER 2020-10-14 02:34 | Outpatient (CLI) | payer MEDICARE, BC, SELFPAY ==
[2020-10-14 10:53] LABS: HCT 42.2 % (36.0-46.0); HGB 13.9 g/dL (11.2-15.7); MCH 29.8 pg (27.0-33.0); MCHC 32.9 % (32.0-36.0); MCV 90.6 fL (80-95); MPV 9.4 fL (8.0-11.0); Platelet Count 304 10^3/uL (130-400); RBC 4.66 10^6/uL (3.93-5.22); RDW 13.2 % (11.7-14.6); RDW-SD 44.1 fL; WBC 7.37 10^3/uL (4.4-10.8)
[2020-10-14 11:03] LABS: Hemoglobin A1C 5.4 % (<5.7)
[2020-10-14 11:35] LABS: ALT 54 U/L (14-59); AST 23 U/L (15-37); Albumin 3.9 g/dL (3.4-5.0); Alkaline Phosphatase 103 U/L (46-116); Anion Gap 9.4 mmol/L (3-11); BUN 17 mg/dL (7-18); Bilirubin, Total 0.6 mg/dL (0.2-1.0); CO2 28.6 mmol/L (21.0-32.0); CREATININE 0.7 mg/dL (0.55-1.02); Calcium 9.2 mg/dL (8.5-10.1); Calculated LDL 141 mg/dL (<100); Chloride 104 mmol/L (98-107); Cholesterol 239 mg/dL (<200); Glucose 89 mg/dL (74-106); HDL Cholesterol 46 mg/dL (40-60); Potassium 4.3 mmol/L (3.5-5.1); Sodium 142 mmol/L (136-145); Total Protein 7.1 g/dL (6.4-8.2); Triglyceride 263 mg/dL (<150)
[2020-10-15 13:52] LABS: COVID-19 RT-PCR UVMMC Result Negative (Negative)
== END 2020-10-14 02:35 | disposition home or self-care (01) ==
LOC: LBO 02:34
PROVIDERS: PCP Nurse Practitioner Family; Visit Provider Student in an Organized Health Care Education/Training Program
DX: M25.562 Pain in left knee (principal); M17.12 Unilateral primary osteoarthritis, left knee; E78.5 Hyperlipidemia, unspecified; Z13.1 Encounter for screening for diabetes mellitus; Z20.822 Contact with and (suspected) exposure to COVID-19; Z01.818 Encounter for other preprocedural examination; Z01.812 Encounter for preprocedural laboratory examination
CPT/HCPCS: 36415; 80053; 80061; 85027; U0003; U0005; 83036

== ENCOUNTER 2020-10-18 07:50 | Day surgery (SDC) | payer MEDICARE, BC, SELFPAY ==
[2020-10-18] VITALS (9 sets, daily range): BP systolic 106–138; BP diastolic 59–79; PULSE 71–108; RESP 13–18; TEMP 36.1–36.7; O2SAT 93–98
[2020-10-18] MEDS: Acetaminophen 500 MG TAB 1000 MG PO (08:25)
[2020-10-18] MEDS: Gabapentin 300 MG CAP PO (08:25)
[2020-10-18] MEDS: Celecoxib 200 MG CAP 400 MG PO (08:25)
[2020-10-18] MEDS: Lactated Ringers 1,000 ML 80 ML IV (08:26)
--- NOTE | 2020-10-18 09:34 | PDOC.DSDIS_ITS ---
Documented by User: TANYA Luciano 10/18/20 09:38 Discharge Plan Disposition Patient Disposition: HOME Condition: Good Discharge Details Reason For Visit: Left TKA Attending Provider: Gustavo Solomon Primary Care Provider: Jie Thorpe Home Meds and New Rx's Prescriptions: New celecoxib 200 mg capsule 200 mg PO BID Qty: 60 RF: 0 aspirin 81 mg tablet,delayed release (DR/EC) 81 mg PO BID Qty: 60 RF: 0 gabapentin 300 mg capsule 300 mg PO QHS Qty: 14 RF: 0 acetaminophen 500 mg capsule 1,000 mg PO Q8H PRN PRNQty: 90 RF: 0 oxycodone 5 mg tablet 5 mg PO Q4H Qty: 18 RF: 0 docusate sodium [Colace] 100 mg capsule 100 mg PO BID PRNQty: 10 RF: 0 Continued loratadine [Allerclear] 10 mg tablet 20 mg PO QAM RF: 0 apple cider vinegar 500 mg tablet 500 mg PO DAILY RF: 0 lorazepam [Ativan] 0.5 mg tablet 0.5 mg PO ONCE Qty: 1 RF: 0 multivitamin [Daily Vitamin] 1 EACH tablet 1 ea PO DAILY RF: 0 Probiotic 1 EACH capsule 1 ea PO DAILY RF: 0 atorvastatin 40 mg tablet 40 mg PO DAILY Qty: 90 RF: 3 budesonide-formoterol [Symbicort] 160-4.5 mcg/actuation HFA aerosol inhaler 2 puff Inhalation BID Qty: 3 RF: 3 albuterol sulfate [ProAir HFA] 90 mcg/actuation HFA aerosol inhaler 1 - 2 puff Inhalation Q4-6H PRN Qty: 1 RF: 3 pantoprazole 40 mg tablet,delayed release (DR/EC) 40 mg PO DAILY Qty: 90 RF: 3 sucralfate 1 gram tablet 1 gm PO QID PRN (Reason: acid reflux) Qty: 90 RF: 3 epinephrine [EpiPen] 0.3 mg/0.3 mL auto-injector 0.3 mg IM ONCE PRN (Reason: anaphylaxis) Qty: 1 RF: 0 Ultima [place] D3 capsule 2 cap PO DAILY RF: 0 Discharge Instructions Additional Instructions: Total Knee Discharge Instructions Activity: The most important activity is to walk. You should try to take short walks a few times a day. It is important that when resting you work on keeping the knee straight. Avoid putting a pillow behind the knee as this will encourage flexion. Work on range of motion exercises as provided by Physical Therapy. - Start outpatient physical therapy within 2 weeks. - You should wear the ROXY hose on both legs for 2 weeks. You may remove these at night. You may also use any compression sock in place of the ROXY hose. Dressing: You may remove the Hernando wrap on your leg 2 days after your surgery and put on the ROXY stocking given to you from the hospital. Keep the surgical dressing (underneath the HERNANDO wrap) in place for at least one week. After the first week it may be removed and replaced with light gauze and tape or nothing. The wound and dressing may get wet after 3 days but avoid soaking the dressing or otherwise it will need to be changed. Many people prefer covering the dressing with cling wrap (saran wrap) to minimize it from getting soaked. If it gets wet, just pat dry. If it starts to peel off then it will need to be changed. Medications: - You should take Tylenol and anti-inflammatory Celebrex as your primary pain control medications. If the Celebrex is too expensive or not covered, please call the office for another alternative (Advil/Ibuprofen or Naproxen/Aleve) - You have been prescribed a stronger pain medication Oxycodone for breakthrough pain, take as needed as prescribed. - You have also been prescribed a stomach acid reduction agent Pantoprozole to help reduce stomach acid and reflux. - You have been prescribed Gabapentin to take at night for restlessness and nerve pain. - You will be taking Aspirin 81mg twice a day for DVT prevention unless instructed otherwise. - If you have constipation you should take Colace or Miralax (both [id number]). It takes most people 3-4 days to have a bowel movement. Follow-up: 2 weeks If you have any acute concerns or questions, please do not hesitate to contact the office at [phone]. You may contact Dr. Solomon with any questions after hours through the hospital at [phone] or on his cell phone at [phone]. 1. Encounter Date and Reason I certify that CARY ARNOLD was seen by Gustavo Solomon MD on 10/18/20 and that I had a [id number] encounter with this patient that meets the physician face to face encounter requirements. 2. Clinical Findings Supporting Skilled Need and Homebound Status I certify that home health services are medically necessary, include either intermittent fdc and/or physical/speech therapy, and that this patient is homebound in that absences from the home require considerable and taxing effort and are infrequent or of short duration, or are attributable to the need to receive medical care. [X] (a) Attached documentation from encounter provides clinical findings supporting skilled need and homebound status (including what assistance patient requires to leave the home). The encounter with the patient was in whole, or in part, for the following medical condition, which is the primary reason for home health care: Left TKA Halfway: Physical Therapy: Cary would benefit from home health physical therapy to help restore better motion and function and gait after knee replacement. She has limitations with strength, ROM, and ambulatory capacity. Initial work should focus on extension and flexion and independent ambulation around her home, using assistive device. Speech Therapy: Homebound: Cary is unable to leave her home unassisted due to weakness, gait disturbance following total knee replacement. 3. Certification and Authentication I certify that I composed the above information based on my clinical judgement relating to this patient's medical condition and, if applicable, clinical findings communicated to me by the NPP or inpatient physician who performed the Home Health Referral. All further orders will be obtained through Dr. Solomon Referrals: Gustavo Solomon MD [ [facility] STAFF PHYSICIAN] - Activity:: Activity as Tolerated Shower/Bathe:: 72 hours Diet:: As Tolerated Discharge Orders Discharge Orders: Discharge Order (Routine); Ordered 10/18/20 Ordered By: Gustavo Solomon DS: Diagnosis Discharge Diagnosis (1) Primary osteoarthritis of left knee: Status: Acute Documented by User: Gustavo Solomon MD 10/18/20 15:21 Discharge Plan Disposition Patient Disposition: HOME Condition: Good Discharge Details Reason For Visit: Left TKA Attending Provider: Gustavo Solomon Primary Care Provider: Jie Thorpe Home Meds and New Rx's Prescriptions: New celecoxib 200 mg capsule 200 mg PO BID Qty: 60 RF: 0 aspirin 81 mg tablet,delayed release (DR/EC) 81 mg PO BID Qty: 60 RF: 0 gabapentin 300 mg capsule 300 mg PO QHS Qty: 14 RF: 0 acetaminophen 500 mg capsule 1,000 mg PO Q8H PRN PRNQty: 90 RF: 0 oxycodone 5 mg tablet 5 mg PO Q4H Qty: 18 RF: 0 docusate sodium [Colace] 100 mg capsule 100 mg PO BID PRNQty: 10 RF: 0 Continued loratadine [Allerclear] 10 mg tablet 20 mg PO QAM RF: 0 apple cider vinegar 500 mg tablet 500 mg PO DAILY RF: 0 lorazepam [Ativan] 0.5 mg tablet 0.5 mg PO ONCE Qty: 1 RF: 0 multivitamin [Daily Vitamin] 1 EACH tablet 1 ea PO DAILY RF: 0 Probiotic 1 EACH capsule 1 ea PO DAILY RF: 0 atorvastatin 40 mg tablet 40 mg PO DAILY Qty: 90 RF: 3 budesonide-formoterol [Symbicort] 160-4.5 mcg/actuation HFA aerosol inhaler 2 puff Inhalation BID Qty: 3 RF: 3 albuterol sulfate [ProAir HFA] 90 mcg/actuation HFA aerosol inhaler 1 - 2 puff Inhalation Q4-6H PRN Qty: 1 RF: 3 pantoprazole 40 mg tablet,delayed release (DR/EC) 40 mg PO DAILY Qty: 90 RF: 3 sucralfate 1 gram tablet 1 gm PO QID PRN (Reason: acid reflux) Qty: 90 RF: 3 epinephrine [EpiPen] 0.3 mg/0.3 mL auto-injector 0.3 mg IM ONCE PRN (Reason: anaphylaxis) Qty: 1 RF: 0 Ultima [place] D3 capsule 2 cap PO DAILY RF: 0 Discharge Instructions Additional Instructions: Total Knee Discharge Instructions Activity: The most important activity is to walk. You should try to take short walks a few times a day. It is important that when resting you work on keeping the knee straight. Avoid putting a pillow behind the knee as this will encourage flexion. Work on range of motion exercises as provided by Physical Therapy. - Start outpatient physical therapy within 2 weeks. - You should wear the ROXY hose on both legs for 2 weeks. You may remove these at night. You may also use any compression sock in place of the ROXY hose. Dressing: You may remove the Hernando wrap on your leg 2 days after your surgery and put on the ROXY stocking given to you from the hospital. Keep the surgical dressing (underneath the HERNANDO wrap) in place for at least one week. After the first week it may be removed and replaced with light gauze and tape or nothing. The wound and dressing may get wet after 3 days but avoid soaking the dressing or otherwise it will need to be changed. Many people prefer covering the dressing with cling wrap (saran wrap) to minimize it from getting soaked. If it gets wet, just pat dry. If it starts to peel off then it will need to be changed. Medications: - You should take Tylenol and anti-inflammatory Celebrex as your primary pain control medications. If the Celebrex is too expensive or not covered, please call the office for another alternative (Advil/Ibuprofen or Naproxen/Aleve) - You have been prescribed a stronger pain medication Oxycodone for breakthrough pain, take as needed as prescribed. - You have also been prescribed a stomach acid reduction agent Pantoprozole to help reduce stomach acid and reflux. - You have been prescribed Gabapentin to take at night for restlessness and nerve pain. - You will be taking Aspirin 81mg twice a day for DVT prevention unless instructed otherwise. - If you have constipation you should take Colace or Miralax (both [id number]). It takes most people 3-4 days to have a bowel movement. Follow-up: 2 weeks If you have any acute concerns or questions, please do not hesitate to contact the office at [phone]. You may contact Dr. Solomon with any questions after hours through the hospital at [phone] or on his cell phone at [phone]. 1. Encounter Date and Reason I certify that CARY ARNOLD was seen by Gustavo Solomon MD on 10/18/20 and that I had a [id number] encounter with this patient that meets the physician face to face encounter requirements. 2. Clinical Findings Supporting Skilled Need and Homebound Status I certify that home health services are medically necessary, include either intermittent fdc and/or physical/speech therapy, and that this patient is homebound in that absences from the home require considerable and taxing effort and are infrequent or of short duration, or are attributable to the need to receive medical care. [X] (a) Attached documentation from encounter provides clinical findings supporting skilled need and homebound status (including what assistance patient requires to leave the home). The encounter with the patient was in whole, or in part, for the following medical condition, which is the primary reason for home health care: Left TKA Halfway: Physical Therapy: Cary would benefit from home health physical therapy to help restore better motion and function and gait after knee replacement. She has limitations with strength, ROM, and ambulatory capacity. Initial work should focus on extension and flexion and independent ambulation around her home, using assistive device. Speech Therapy: Homebound: Cary is unable to leave her home unassisted due to weakness, gait disturbance following total knee replacement. 3. Certification and Authentication I certify that I composed the above information based on my clinical judgement relating to this patient's medical condition and, if applicable, clinical findings communicated to me by the NPP or inpatient physician who performed the Home Health Referral. All further orders will be obtained through Dr. Solomon Referrals: Gustavo Solomon MD [ [facility] STAFF PHYSICIAN] - Activity:: Activity as Tolerated Shower/Bathe:: 72 hours Diet:: As Tolerated Discharge Orders Discharge Orders: Discharge Order (Routine); Ordered 10/18/20 Ordered By: Gustavo Solomon
[2020-10-18] MEDS: ceFAZolin 2 GM/50 ML BAG IVPB (10:30)
[2020-10-18] MEDS: Normal Saline 20 ML VIAL (11:40)
[2020-10-18] MEDS: Ketorolac 30 MG/ML VIAL (11:40)
[2020-10-18] MEDS: Bupivacaine 0.25% Pres-Free 30 ML VIAL (11:40)
--- NOTE | 2020-10-18 12:36 | W.PM.OP ---
Date of service: 10/18/20 Time of Service: 12:03 Operative Note Operative Note DATE OF PROCEDURE: 10/18/20 PRE-OP DIAGNOSIS: Left Knee Osteoarthritis POST-OP DIAGNOSIS: same PROCEDURE: Left Total Knee Replacement SURGEON: Gustavo Solomon DIRECTOR OF RESEARCH: Jina Cerna ANESTHESIA TYPE: Spinal Refer to Anesthesia Record ESTIMATED BLOOD LOSS: 250 PATHOLOGY: none sent TOURNIQUET TIME: 0 COMPLICATIONS: None Patient was transported to: PACU Patient's condition: stable Implants: 1. Depuy Attune Cementless Cruciate Retaining Femoral Component, Size 5 2. Depuy Attune Cementless Rotating Platform Tibial Component, Size 4 3. Depuy Attune 5x6mm CR/RP Poly 4. Depuy Attune Patellar Component, Size 38 Indications: I have seen Cary in clinic for symptoms of knee arthritis, confirmed with radiographic findings. Cary has exhausted nonoperative methods and was having significant limitations in daily function and desired better function and less pain. I discussed the technical details of a knee replacement. I explained the risks of the procedure to include, but not limited to, bleeding, infection, pain, stiffness, fracture, damage to nerves and vessels, damage to muscles and tendons, loosening, need for repeat procedure, blood clot and cardiopulmonary demise. Despite these risks, she elected to proceed. Findings: There was significant signs of arthritis throughout the knee. Procedure Description: Cary was greeted in the preoperative holding area where the correct side was identified and marked. The consent was reviewed with the patient and signed. The history and physical was updated. All questions were answered. Preoperative medications were administered: Acetaminophen 1000mg, Celebrex 400mg, and Gabapentin 300mg. An adductor canal block was then administered by the anesthesia team in the PACU. Cary was taken back to the operating room. A spinal anesthestic was then administered. The patient was placed into the supine position on the operating room table. A nonsterile tourniquet was placed high onto the leg but only used for cementing. Posts were placed for positioning during the procedure. All bony prominences were well padded. Prophylactic antibiotics in the form of Cefazolin were administered. 1g of Tranxemic Acid was given intravenously within 30 minutes of incision. The left leg was then prepped with Chloraprep and draped in a standard fashion with impervious stockinette. A second prep with Chloraprep was performed prior to application of Iodine impregnated skin protection. A timeout to confirm correct identity, side and site, procedure, allergies, anesthesia, and medical concerns was performed. With the knee in some flexion, a midline incision was made overlying the knee. Full thickness skin flaps were raised once the extensor mechanism was encountered. These were raised medially and laterally. Any bleeding was controlled with electrocautery. Once the extensor mechanism was fully exposed, a medial parapatellar arthrotomy was performed in a flexed position. All bleeding from the arthrotomy and the geniculate arteries was coagulated. A medial subperiosteal peel was performed with electrocautery to the midcoronal plane. Due to the significant varus deformity the entire medial tibial plateau was exposed. The fat pad was removed while keeping the patellar tendon protected. The anterior distal femur synovium was removed for later visualization. The ACL and PCL were resected and the anterior horn of the lateral meniscus was transected. The knee was then flexed with the patella everted. Large osteophytes from the tibia were removed. Large osteophytes from the femur were removed. Using a step drill, and based on preoperative templating, the femoral canal was entered. This was done with a step drill without any difficulty. The intramedullary distal femoral cut guide was inserted, set to a 5 degree valgus cut and 9mm cut thickness. The distal femoral cut guide was then held in position and pinned. With the soft tissues protected, the distal cut was performed. This was passed over a few times to ensure a planar cut. I then turned attention to the tibia. The extramedullary guide was placed onto the leg. The distal aspect was slid medial to adjust for position of center of ankle and stay in line with shaft of the tibia. Approximately 3-5 degrees of posterior slope was kept in the proximal cutting guide. The center of the guide was aligned with the PCL. The stylus was used to assess cut thickness. The medial side, most involved side, was set for a 3mm cut. This was then held in position and pinned into place with 2 additional pins and a cross pin for stability. The medial and lateral collateral ligaments were protected and the cut was performed. With this completed, it was assessed and noted to be of appropriate dimensions. The guide was removed. A spacer block was inserted and the knee was brought into extension. The 6mm spacer block provided full extension, without hyperextension and with stability of both the medial and lateral collateral ligaments was assessed. The pins from the femur and the tibia were then removed. The distal femur was then sized. The anterior stylus was placed onto the lateral ridge of the anterior femur. This indicated a size 5 femur. The external rotation of the guide was adjusted to 3 degrees to match the epicondylar axis, perpendicular to Susan?s line. The 4-in-1 cutting guide was the placed. The posterior medial femur cut was evaluated and appeared of good thickness. The spacer block was inserted underneath the cutting guide and stability was confirmed in 90 degrees of flexion. An jamal wing was used to confirm appropriate position of the anterior cut to avoid notching. This cutting guide was ensured to be flush on the cut surface and then pinned into place with headed pins. While protecting the soft tissues, quad tendon, and collateral ligaments, the anterior and posterior cuts were performed with a saw. The central two pins were removed and the posterior and anterior chamfers were cut next. The notch-cutting guide was placed. This was pinned to lateralize the femoral component as much as possible while keeping it flush on the cut surface. This was then pinned into position. A reciprocating saw was used to make the notch cut. A rasp smoothed the cut surfaces. The medial and lateral menisci were removed. A trial femoral component was then inserted, impacted down to the cut surfaces, and the lug holes were drilled. A provisional trial tibial component was placed and the knee was brought through range of motion. There was noted to be excellent extension and flexion. There was no significant instability. The polyethylene was trialed until there was good flexion and extension with excellent stability to the medial and lateral collaterals. The patella was tracking without thumbs. A size 6mm polyethylene component provided the best range of motion and stability with less than 2mm gapping with medial and lateral stress and full extension without significant hyperextension. The tibial cut surface was fully exposed. The tibia was then sized as a 4. The tibia had been previously marked during trialing to correspond to the center of the tibial component to help with rotation. The trial was aligned to this jina, approximately rotated to the medial 1/3rd of the tibial tubercle. The trial was pinned into place. The tibia was prepared with a reamer and a keel punch and lug holes. The knee was then brought into extension and the patella was measured as 22mm. Using the patellar clamp and cut guide, this was resected to a flat surface with at least 13mm of thickness remaining. The size 38 patella fit the best. This was oriented and then clamped into position. The lugs were drilled. The trial components were removed. The final components were opened on the back table. The periosteal and capsular tissues, especially posteriorly, around the knee were then systematically injected with a periarticular cocktail consisting of 50cc 0.25% Marcaine, 30mg Ketorolac, 20cc of Exparal and 50cc of injectable saline. The knee was thoroughly irrigated with a pulse lavage and dried. Irrisept was also used to irrigate the tissues. On the back table, with the implants opened, the cement was mixed. One batch of high viscosity cement was prepared with vacuum assistance. After the cement was ready a small amount was placed on the cut surface of the patella and the patellar button was clamped into position and held. During this process attention was turned to the gutters of the knee and for all interfaces for any excess cement. While the cement was hardening, the cementless knee components were placed. Starting with the tibial component, the tibia was subluxed anteriorly and the lug holes of the component were lined up. The tibia was then impacted with an impactor and mallet until the tibial component was in contact with the tibia. The final polyethylene component was inserted. Then, the femoral component was inserted. The lug holes were aligned and the component was impacted into position. The knee was irrigated with Irrisept chlorhexadine solution. This was allowed to sit in the knee for 3 minutes. After the cement had finally cured, approximately 15min, the clamp was removed from the patella and the knee was taken through range of motion. The patella was tracking with a no-thumbs technique. The capsule was then reapproximated with a No. 1 Vicryl at multiple locations. The capsule was finally closed with a No. 2 Stratafix, barbed suture. The second dosing of 1g TXA was started. Deep tissues were then reapproximated with 0 Vicryl and 2-0 Vicryl. The skin was closed with a running 3-0 Monocryl in a subcuticular fashion. This was reinforced with skin glue. A Mepilex silver dressing was applied along with a [id number] CRISTI wrap. A CryoCuff was applied. Cary was transferred to the hospital bed without difficulty an suffering no apparent complication. Cary has a good prognosis. Physical therapy will start today and without restrictions, weight-bearing as tolerated. Aspirin 81mg BID will be used for DVT prophylaxis.
[2020-10-18] MEDS: fentaNYL 100 MCG/2 ML VIAL IVP (13:00)
[2020-10-18] MEDS: oxyCODONE 5 MG TAB PO (13:46)
--- NOTE | 2020-10-18 14:13 | PT.INIE ---
Date of service: 10/18/20 Time of Service: 14:13 PT Notes Visit Reasons: Left TKA Physical Therapy Inpatient Initial Evaluation Date: 10/18/2020 Referring Doctor: TANYA Luciano PT Orders: PT CONSULT: Eval/treat Precautions: Fall. Standard. WBAT on the left LE. Patient Profile/Admitting Diagnosis: Cary is a 65-year-old female with primary unilateral osteoarthritis of the left knee and is status post left total knee arthroplasty on postoperative day 0. PMHX: Medical History Adult BMI > 30 Alcohol use disorder Chronic obstructive pulmonary disease, unspecified (11/26/16) Dermatographism Fracture, radius, head Gastritis due to nonsteroidal anti-inflammatory drug GERD (gastroesophageal reflux disease) Endoscopy 07/2019 Hyperlipidemia (08/30/11) Laryngitis Resolved with tx of GERD with PPI Laryngitis from reflux of stomach acid Resolved with tx of GERD with PPI Mild persistent asthma without complication (11/26/16) Mixed incontinence urge and stress Obstructive sleep apnea syndrome (08/30/11) DR. KINGSLEY, CPAP Osteoarthritis of both hands (08/30/15) [facility] XRAY- no evidence of crystalline or erosive arthropathy Osteopenia 10/2018 DEXA: hip T-score -2.1; FRAX 16% major osteoporotic, 2.8% hip --> no bisphosphonate tx indicated, continue Ca/vitamin D3 supplementation Right distal ureteral calculus Squamous cell carcinoma of scalp (11/06/11) Dr. Félix Bronson, Dermatology, removed 09/2011. Scalp. Supraglottic edema Tobacco use disorder QUIT 2008 Surgical History Colonoscopy - MAC (08/15/16) History of esophagogastroduodenoscopy (EGD) (~08/03/19) History of lateral meniscus repair of left knee History of lateral meniscus repair of right knee Social History/Home Situation: Cary lives with Edmond in a private home with 5 steps to enter with a rail on the left side going up. There is another set of stairs to the floor of the house where their bedroom is. She emphasizes however that she has a makeshift bed on the main floor of the house when she goes home today. Independent with all aspects of ADLs prior to surgery. Equipment Owned/DME: FWW, bilateral axillary crutches Subjective: Agreeable to PT consult. Appeared highly anxious initially with putting weight on L LE and complained of pain through the left knee joint line initially at 2/10 that shoot up to 3-4/10 with standing. She did admit midway through ambulation that her knee felt better. Relieved significantly after finding out he can manage the 5 steps using a crutch and a rail. States that works however has a bad back but will be strong enough to assist her on the entrance and the indoor steps. Objective: General Observation: Supine on stretcher. Cryocuff on left knee. Hernando wraps to left knee. TEDS on the right leg. Maida Echeverria and Nurse Waredresser Rachelle assisting with mobility assessment for safety. Mental Status: Alert and oriented x 4. Appeared anxious about weight bearing initially. Pain: 2-3/10 in the left knee Vital Signs: Within normal limits as monitored by nurse Echeverria ROM: Right Upper Extremity: Shoulder Flexion WFL. Shoulder abduction WFL. Elbow flexion WFL. Wrist flexion WFL. Opening and closing of hand WFL. Left Upper Extremity: Shoulder Flexion WFL. Shoulder abduction WFL. Elbow flexion WFL. Wrist flexion WFL. Opening and closing of hand WFL. Right Lower Extremity: Hip flexion WFL. Hip abduction WFL. Knee flexion WFL. Ankle dorsiflexion WFL. Ankle plantarflexion WFL. Left Lower Extremity: Hip flexion WFL. Hip abduction WFL. Knee flexion about 45 degrees to 90 degrees due to pain. Knee extension about -45 degrees due to pain. Ankle dorsiflexion WFL. Ankle plantarflexion WFL. Strength: Right Upper Extremity: Shoulder flexors 5/5. Shoulder abductors 5/5. Elbow flexors 5/5. Elbow extensors 5/5. Respiratory Support Technician strong. Left Upper Extremity: Shoulder flexors 5/5. Shoulder abductors 5/5. Elbow flexors 5/5. Elbow extensors 5/5. Respiratory Support Technician strong. Right Lower Extremity: Hip flexors 5/5. Hip abductors 5/5. Knee flexors 5/5. Knee extensors 5/5. Ankle dorsiflexors 5/5. Ankle plantarflexors 5/5. Left Lower Extremity:Hip flexors 5/5. Hip abductors 5/5. Knee flexors 3-/5. Knee extensors 3-/5. Ankle dorsiflexors 5/5. Ankle plantarflexors 5/5. Sensation: Intact as to pain and pressure on bilateral lower extremities. Bed Mobility/Transfers: Supine to sit minimal assist to left LE due to pain Sit to stand contact-guard assist Stand to sit contact-guard assist Bed to chair contact-guard assist Gait: Patient on level surface ambulation 15 feet inside bedside recliner using front wheel walker with contact-guard assist with WBAT on left LE. Reported increased discomfort and pain to 3/10 pain joint midline that subsided with rest. Negotiated the distance between bedside recliner to the toilet about 20 feet using the same assistive device and level of assist. Again covered a distance of 30 feet from toilet to the [facility] hallway with report of decreasing pain level. Stairs: While holding onto the left rail going up (left going down) and using a crutch on the right (left going down), patient required minimal to moderate verbal cueing for correct technique and safety negotiating up-and-down five 6 inch steps. Nurse Jacki and Nurse Rachelle assisting for safety. Balance: Static Sitting: Normal Dynamic Sitting: Normal Static Standing: Fair Dynamic Standing: air Special Tests: Mobility Limitations Standardized Measure [facility] AM-PAC 6 clicks Basic Mobility Inpatient Short Form: Raw Score: 17 CMS Score: 51% deficit Informed Consent/Education: Patient instructed in purpose of PT consult. Assessment: Cary demonstrates functional mobility decline requiring the use of a front wheeled walker for all mobility ADL performance as well has a single crutch to negotiate entrance and indoor steps. She will benefit from home health PT services to progress mobility level and increase safety of stair negotiation. Patient presents with clinical signs and symptoms consistent with current/admitting diagnoses that have resulted to mobility limitations, gait instability, generalized weakness, and impairment of motor control as demonstrated by the following impairment level findings: 1. Decreased strength to left knee major muscle groups 2. Impaired sitting/standing balance 3. Impaired activity tolerance 4. Limitation of joint range of motion in left knee Impairments are contributing to the following functional limitations: 1. Dependent bed mobility skills 2. Increased dependence with transfers 3. Inability to safely ambulate without assistive device and physical assistance 4. Increase completion time for mobility ADL performance 5. Increased fall risk 6. Inability to negotiate steps alone safely Patient is assessed as a 56912 moderate complexity based on the following: History: 65-year-old female with impairment level findings, functional limitations, and past medical history as indicated above Examination: Demonstrable impairment in strength, balance, and mobility level with underlying impairments and functional limitations as documented above Presentation:Evolving Decision Makin moderate complexity Goals: N/A. PT evaluation and 1-2 treatment sessions only for functional mobility training using recommended AD and for HEP instruction. Plan of Care/Treatment Plan: N/A. PT evaluation and 1-2 treatment session only for functional mobility training using recommended AD and for HEP instruction. DISCHARGE RECOMMENDATIONS: Home when medically cleared by orthopedic surgeon. Patient will benefit from home health PT services in order to progress mobility level using least restrictive assistive ambulatory device, educate on HEP, assess home safety, identify additional equipment needs, and establish a functional maintenance program that will increase ability of patient to remain at home. TREATMENT CODE/TIME: 13226 x 25 minutes, 13042 x 42 minutes beginning at 14:13 PM. Thank you for the opportunity to participate in the care of this patient. Liza Angulo PT, DPT, CLT [facility] [place], [place]
== END 2020-10-18 16:55 | disposition home or self-care (01) ==
PROVIDERS: PCP Nurse Practitioner Family; Visit Provider Student in an Organized Health Care Education/Training Program
PROC: (CPT 27447; principal; 2020-10-18 10:00)
DX: M17.12 Unilateral primary osteoarthritis, left knee (principal); M25.562 Pain in left knee; Z96.652 Presence of left artificial knee joint; G89.18 Other acute postprocedural pain; J44.9 Chronic obstructive pulmonary disease, unspecified; K21.9 Gastro-esophageal reflux disease without esophagitis; F41.8 Other specified anxiety disorders; G47.33 Obstructive sleep apnea (adult) (pediatric)
CPT/HCPCS: 27447; C1776; 76942; 97162; 97530; J0690; J1100; J1885; J2001; J2250; J2405; J3010

== ENCOUNTER 2020-11-07 14:30 | Outpatient (CLI) | payer MEDICARE, BC, SELFPAY ==
--- NOTE | 2020-11-07 14:15 | DI.RAD_ITS ---
EXAM: XR STANDING ALIGNMENT CLINICAL HISTORY: 1ST POST OP L TKA. TECHNIQUE: 2D digital imaging was performed. COMPARISON: CR XR STANDING ALIGNMENT from 09/15/2020 FINDINGS: Compared the prior study of 09/15/2019 there has been interval placement of a left knee prosthesis. This appears to be in satisfactory position. Advanced degenerative changes are again noted in opposi te-right knee. Hips appear unremarkable as do the ankles. IMPRESSION: DATA REPOSITORY: RADIATION DOSE DELIVERED:
--- NOTE | 2020-11-07 14:15 | DI.RAD_ITS ---
EXAM: XR KNEE LT 1V CLINICAL HISTORY: 1ST POST OP. TECHNIQUE: 2D digital imaging was performed. COMPARISON: CR XR KNEE LT 2V AP,LAT from 09/15/2020 FINDINGS: Satisfactory position of the prosthesis components evident on this lateral view. No fracture or loos ening evident. IMPRESSION: DATA REPOSITORY: RADIATION DOSE DELIVERED:
== END 2020-11-07 14:31 | disposition home or self-care (01) ==
LOC: DIORS 14:31
PROVIDERS: PCP Nurse Practitioner Family; Referring Provider Nurse Practitioner Family; Visit Provider Physician Assistant
DX: Z96.652 Presence of left artificial knee joint (principal); Z47.1 Aftercare following joint replacement surgery
CPT/HCPCS: 73560; 77073

== ENCOUNTER → 2020-12-05 14:10 | Outpatient (BNVA) | payer MEDICARE, BC, SELFPAY | PROVIDERS: PCP Nurse Practitioner Family; Visit Provider Student in an Organized Health Care Education/Training Program | DX: Z47.1 Aftercare following joint replacement surgery (principal); Z96.652 Presence of left artificial knee joint ==

== ENCOUNTER → 2021-01-16 14:46 | Outpatient (BNVA) | payer MEDICARE, BC, SELFPAY | PROVIDERS: PCP Nurse Practitioner Family; Referring Provider Nurse Practitioner Family; Visit Provider Student in an Organized Health Care Education/Training Program | DX: Z47.1 Aftercare following joint replacement surgery (principal); Z96.652 Presence of left artificial knee joint ==

== ENCOUNTER 2021-07-18 12:13 | Emergency (ER) | payer MEDICARE, BC, SELFPAY ==
[2021-07-18 12:21] VITALS: PULSE 86; RESP 14
--- NOTE | 2021-07-18 12:40 | W.ED.GENAD ---
Discharge Plan Disposition Patient Disposition: HOME Condition: Good Discharge Details Clinical Impression: Tight ring on finger Primary Care Provider: Jie Thorpe ED Provider: Barbie Su Home Meds and New Rx's Prescriptions: Continued loratadine [Allerclear] 10 mg tablet 20 mg PO QAM RF: 0 apple cider vinegar 500 mg tablet 500 mg PO DAILY RF: 0 triamcinolone acetonide 0.5 % cream 1 applic topical .BID-QID Qty: 15 RF: 0 multivitamin [Daily Vitamin] 1 EACH tablet 1 ea PO DAILY RF: 0 Probiotic 1 EACH capsule 1 ea PO DAILY RF: 0 epinephrine [EpiPen] 0.3 mg/0.3 mL auto-injector 0.3 mg IM ONCE PRN (Reason: anaphylaxis) Qty: 1 RF: 0 albuterol sulfate [ProAir HFA] 90 mcg/actuation HFA aerosol inhaler 1 - 2 puff Inhalation Q4-6H PRN Qty: 1 RF: 3 atorvastatin 40 mg tablet 40 mg PO DAILY Qty: 90 RF: 3 budesonide-formoterol [Symbicort] 160-4.5 mcg/actuation HFA aerosol inhaler 2 puff Inhalation BID Qty: 3 RF: 3 pantoprazole 40 mg tablet,delayed release (DR/EC) 40 mg PO QAM Qty: 90 RF: 3 sucralfate 1 gram tablet 1 g PO QID PRN (Reason: acid reflux) Qty: 90 RF: 3 Ultima [place] D3 capsule 2 cap PO DAILY RF: 0 Discharge Instructions Additional Instructions: Rings have been removed. Indentations and swelling should go down with time. Elevation can assist with this. Tylenol and/or ibuprofen as needed for discomfort. Please follow-up with primary care as needed. Do not apply any more rings on the finger for the time being. If you develop any new or worsening symptoms please seek care urgently once again. Referrals: Jie Thorpe NP [Primary Care Provider] - Discharge Data Discharge Date/Time-TO BE ENTERED AT DEPARTURE: 07/18/21 14:25 Medical Decision Making Patient pleasant 55-year-old female presented with chief complaint of ring stuck on finger. Patient has 2 wedding ring on her left ring finger that has become too tight. Attempted to go to a jeweler but they were not able to remove the ring for her. She states that she is been trying ice and elevation without success Rings cut by nursing staff. Reeevaluation shows indentation but no deformity. Neurovascularly intact. Return precautions discussed. Advised she not replace rings for now. All of her questions and concerns were addressed, she is in agreement with this plan. HPI General Mode of arrival: ambulatory. Date/Time Provider Initiated Documentation: 07/18/21 12:40. Limitations to Documentation: no limitations. Information obtained by: patient and RN notes reviewed. HPI Narrative: Patient is a pleasant 65 year old female presenting today with c/c of wedding rings stuck on left ring finger. Fingers swollen. Has failed outpatient management of this, requesting them to be cut off Related Data Home Medications Medication Instructions Recorded Confirmed multivitamin [Daily Vitamin] 1 ea PO DAILY 07/15/14 01/26/21 Probiotic 1 ea PO DAILY 05/25/16 01/26/21 Ultima [place] D3 2 cap PO DAILY 08/14/16 01/26/21 loratadine 10 mg tablet 20 mg PO QAM tab 02/19/20 01/26/21 epinephrine 0.3 mg/0.3 mL 0.3 mg IM ONCE PRN #1 each 07/27/20 01/26/21 injection, auto-injector apple cider vinegar 500 mg tablet 500 mg PO DAILY 07/28/20 01/26/21 albuterol sulfate 90 mcg/actuation 1 - 2 puff INHALATION Q4-6H PRN #1 11/25/20 01/26/21 aerosol inhaler inhaler atorvastatin 40 mg tablet 40 mg PO DAILY #90 tab-cap 11/25/20 01/26/21 budesonide-formoterol HFA 160 2 puff INHALATION BID #3 inhaler 11/25/20 01/26/21 mcg-4.5 mcg/actuation aerosol inhaler triamcinolone acetonide 0.5 % 1 applic TOPICAL .BID-QID #15 g 01/26/21 01/26/21 topical cream pantoprazole 40 mg tablet,delayed 40 mg PO QAM #90 tab-cap 04/27/21 release sucralfate 1 gram tablet 1 g PO QID PRN #90 tab-cap 04/27/21 Previous Rx's Medication Instructions Recorded epinephrine 0.3 mg/0.3 mL 0.3 mg IM ONCE PRN #1 each 07/27/20 injection, auto-injector albuterol sulfate 90 mcg/actuation 1 - 2 puff INHALATION Q4-6H PRN #1 11/25/20 aerosol inhaler inhaler atorvastatin 40 mg tablet 40 mg PO DAILY #90 tab-cap 11/25/20 budesonide-formoterol HFA 160 2 puff INHALATION BID #3 inhaler 11/25/20 mcg-4.5 mcg/actuation aerosol inhaler triamcinolone acetonide 0.5 % 1 applic TOPICAL .BID-QID #15 g 01/26/21 topical cream pantoprazole 40 mg tablet,delayed 40 mg PO QAM #90 tab-cap 04/27/21 release sucralfate 1 gram tablet 1 g PO QID PRN #90 tab-cap 04/27/21 Allergies Allergy/AdvReac Type Severity Reaction Status Date / Time Sulfa (Sulfonamide Allergy Intermediate Itching Verified 01/26/21 09:12 Antibiotics) ranitidine Allergy Hives Verified 01/26/21 09:12 varicella-zoster immune Allergy ? hives Verified 01/26/21 09:12 globulin (h montelukast [From Singulair] AdvReac hyper Verified 01/26/21 09:12 METALS Allergy Intermediate RASH Uncoded 01/26/21 09:12 General JEWEL: 3 Review of Systems Constitutional Constitutional: Reports as per HPI, Denies headache(s) and Denies weakness ENT Ears, Nose, Mouth, and Throat: Denies headache(s) Musculoskeletal Musculoskeletal: Reports as per HPI and Denies tingling Integumentary/Breasts Skin/Breast: Reports as per HPI, Denies rash and Denies wounds Neurologic Neurologic: Reports as per HPI, Denies headache(s), Denies tingling, Denies paresthesias and Denies weakness [facility] Active Problem List (Updated 07/18/21 @ 14:22 by TANYA Diop) Tight ring on finger (Acute) Obesity (Chronic) Primary osteoarthritis of right knee (Acute) Cataracts, bilateral (Acute) Dermatographism (Acute) GERD (gastroesophageal reflux disease) (Chronic) Right distal ureteral calculus (Chronic) Mixed incontinence urge and stress (Chronic) Osteopenia (Chronic) Hyperlipidemia (Chronic 08/30/11) Chronic obstructive pulmonary disease, unspecified (Chronic 11/26/16) Mild persistent asthma without complication (Chronic 11/26/16) Obstructive sleep apnea syndrome (Chronic 08/30/11) Osteoarthritis of both hands (Chronic 08/30/15) Medical History (Updated 07/18/21 @ 14:22 by TANYA Diop) Fracture, radius, head Laryngitis from reflux of stomach acid Resolved with tx of GERD with PPI Primary osteoarthritis of left knee S/p left TKR 09/2020 Squamous cell carcinoma of scalp (11/06/11) Dr. Félix Bronson, Dermatology, removed 09/2011. Tobacco use disorder QUIT 2008 Surgical History (Updated 01/26/21 @ 09:30 by Jie Thorpe NP) Colonoscopy - MAC (08/15/16) History of esophagogastroduodenoscopy (EGD) (~08/03/19) History of lateral meniscus repair of left knee History of lateral meniscus repair of right knee History of total left knee replacement (10/18/20) Family History Mother , CVA at age 80. Hyperlipidemia Stroke Father , at 66 y/o (lung cancer); smoker Hyperlipidemia Lung cancer Grandmother Heart disease Maternal Aunt Breast cancer Grandfather Diabetes Daughter Glaucoma IBD (inflammatory bowel disease) Not sure if UC or Crohn's Asthma Social History (Updated 01/26/21 @ 09:42 by Jie Thorpe NP) Smoking/Tobacco Use Status: Former Tobacco Use Quit Date: 12/24/08 Pack-years: 46 Tobacco: How many years used: 10 Smoking risk assessment performed?: Yes Alcohol Intake: current Alcohol Intake frequency: holidays/special occasions only Alcohol type: hard liquor Drug use: Never Adopted: No Caregiver/Support person: No Foster care: No Household members: spouse Number of Children: 2 Communication Needs: None Pets and animals: No Sexually active: No Current gender identity: female What type of physical activity do you participate in: other Details: Golfing Duration: other Details: 4 hours per game, once per week Seatbelt use: always Water heater temp set <120 deg: Yes Working smoke detector in home: Yes Fire extinguisher in home: Yes Carbon monox detector in home: Yes Firearms in home: No Do you feel safe at home: Yes Do you feel safe in your relationship?: Yes Female Reproductive History Menstrual Menopause type: natural Exam Const General: cooperative, healthy appearing, comfortable, no acute distress, well developed and well groomed Nutritional Appearance: average body habitus and well nourished Orientation: alert and awake Resp Effort & Inspection: normal respiratory effort, able to speak in complete sentences and no respiratory distress Cardio Rate: regular rate Rhythm: regular rhythm Skin General skin exam: no rashes or lesions noted Neuro General: patient alert and patient awake Cognition: normal cognition Speech: speech normal Gait: normal gait Motor: muscle tone normal throughout Sensory Exam: no sensory deficits noted Extrem Hand/finger images: 1. Area of indentation from ring. Digit is well perfused with full ROM. Capillary refill intact. Sensation intact. Psych Appearance: grossly normal and well kempt Mental Status: mental status grossly normal Speech and Movement: speech and movement normal
== END 2021-07-18 14:25 | disposition home or self-care (01) ==
PROVIDERS: Emergency Provider Physician Assistant; PCP Nurse Practitioner Family
DX: M79.645 Pain in left finger(s) (principal); W49.04XA Ring or other jewelry causing external constriction, initial encounter
CPT/HCPCS: 99281

== ENCOUNTER 2021-08-02 02:31 | Outpatient (CLI) | payer MEDICARE, BC, SELFPAY ==
[2021-08-02 10:43] LABS: ALT 32 U/L (14-59); AST 18 U/L (15-37); Albumin 4.1 g/dL (3.4-5.0); Alkaline Phosphatase 103 U/L (46-116); Anion Gap 6.8 mmol/L (3-11); BUN 18 mg/dL (7-18); Bilirubin, Total 0.3 mg/dL (0.2-1.0); CO2 31.2 mmol/L (21.0-32.0); CREATININE 0.7 mg/dL (0.55-1.02); Calculated LDL 149 mg/dL (<100); Chloride 104 mmol/L (98-107); Cholesterol 243 mg/dL (<200); Glucose 93 mg/dL (74-106); HDL Cholesterol 48 mg/dL (40-60); Potassium 4.4 mmol/L (3.5-5.1); Sodium 142 mmol/L (136-145); Triglyceride 233 mg/dL (<150)
== END 2021-08-02 02:32 | disposition home or self-care (01) ==
LOC: LBO 02:32
PROVIDERS: PCP Nurse Practitioner Family; Visit Provider Nurse Practitioner Family
DX: E66.9 Obesity, unspecified (principal); Z13.1 Encounter for screening for diabetes mellitus; E78.5 Hyperlipidemia, unspecified
CPT/HCPCS: 36415; 80053; 80061

== ENCOUNTER 2021-09-07 02:14 | Outpatient (CLI) | payer MEDICARE, BC, SELFPAY ==
--- NOTE | 2021-09-07 07:45 | DI.MAMMO_ITS ---
Exam(s) MAMMO SCREENING EXAM: MAMMO SCREENING CLINICAL HISTORY: screening,Z12.39 TECHNIQUE: Mammograms were interpreted according to the usual protocol including computer analysis w [employer] CAD system, tomosynthesis and C-view imaging. COMPARISON: 2011 through 2019 FINDINGS: The breasts are composed of scattered fibroglandular densities, Breast Density category B. No suspicious masses or suspicious microcalcifications are seen. No skin thickening or abnormal axillary lymph nodes are seen. There has been no significant change from prior exams. IMPRESSION: BI-RADS Category 1, Negative mammogram Yearly screening mammography is recommended. Breast Density - Category B, scattered fibroglandular densities. A negative radiographic report should not delay biopsy if a dominant or clinically suspicious mass is present. Up to ten percent of cancers are not identified on mammography. A negative report may reinforce clinical impression. Adenosis and dense breasts may obscure an underlying neoplasm. False positive reports average 6 to 10%. Patient will receive a letter notifying them of these results.
== END 2021-09-07 02:34 ==
PROVIDERS: PCP Nurse Practitioner Family; Visit Provider Nurse Practitioner Family
DX: Z12.31 Encounter for screening mammogram for malignant neoplasm of breast (principal)
CPT/HCPCS: 77063; 77067

== ENCOUNTER 2021-10-19 09:50 | Outpatient (CLI) | payer MEDICARE, BC, SELFPAY ==
--- NOTE | 2021-10-19 09:15 | DI.RAD_ITS ---
Exam(s) XR KNEE LT 2V AP,LAT EXAM: XR KNEE LT 2V AP,LAT CLINICAL HISTORY: ANNUAL F/U L TKA. TECHNIQUE: 2D digital imaging was performed. COMPARISON: CR XR KNEE LT 1V from 11/07/2020 FINDINGS: Stable position alignment of the components of the left knee prosthesis. No fracture or loosening ev ident. IMPRESSION: DATA REPOSITORY: RADIATION DOSE DELIVERED:
== END 2021-10-19 09:51 | disposition home or self-care (01) ==
LOC: DIORS 09:51
PROVIDERS: PCP Nurse Practitioner Family; Referring Provider Nurse Practitioner Family; Visit Provider Student in an Organized Health Care Education/Training Program
DX: Z96.652 Presence of left artificial knee joint (principal); M70.52 Other bursitis of knee, left knee
CPT/HCPCS: 99212; 73560

== ENCOUNTER 2022-06-21 03:59 | Outpatient (CLI) | payer MEDICARE, BC, SELFPAY ==
[2022-06-21 09:39] LABS: ALT 43 U/L (14-59); AST 23 U/L (15-37); Albumin 3.9 g/dL (3.4-5.0); Alkaline Phosphatase 106 U/L (46-116); Anion Gap 3.9 mmol/L (3-11); BUN 14 mg/dL (7-18); Bilirubin, Total 0.5 mg/dL (0.2-1.0); CO2 31.1 mmol/L (21.0-32.0); CREATININE 0.8 mg/dL (0.55-1.02); Calcium 9.2 mg/dL (8.5-10.1); Calculated LDL 97 mg/dL (<100); Chloride 102 mmol/L (98-107); Cholesterol 186 mg/dL (<200); Estimated GFR 80.21 (mL/min/1.73m2); Glucose 93 mg/dL (74-106); HDL Cholesterol 51 mg/dL (40-60); Potassium 3.7 mmol/L (3.5-5.1); Sodium 137 mmol/L (136-145); Total Protein 7.4 g/dL (6.4-8.2); Triglyceride 194 mg/dL (<150)
== END 2022-06-21 04:00 | disposition home or self-care (01) ==
LOC: LBO 03:59
PROVIDERS: PCP Nurse Practitioner Family; Visit Provider Nurse Practitioner Family
DX: Z13.1 Encounter for screening for diabetes mellitus (principal); E78.5 Hyperlipidemia, unspecified
CPT/HCPCS: 36415; 80053; 80061

== ENCOUNTER 2022-09-10 01:36 | Outpatient (CLI) | payer MEDICARE, BC, SELFPAY ==
--- NOTE | 2022-09-10 06:45 | DI.MAMMO_ITS ---
Exam(s) MAMMO SCREENING EXAM: MAMMO SCREENING CLINICAL HISTORY: screening,z12.39 TECHNIQUE: Bilateral full field digital CC and MLO mammographic images were obtained with 3D tomosyn thesis and utilizing computer aided detection (CAD). COMPARISON: Available for comparison. FINDINGS: Masses/Architectural Distortion: No suspicious masses or areas of architectural distortion are identi fied. The well-circumscribed nodules in the upper outer quadrants of each breast are stable. Microcalcifications: No suspicious pleomorphic-type are seen. Skin Thickening/Nipple Retraction: None. IMPRESSION: 1. No significant interval change with no specific features of malignancy noted. 2. Unless there is more urgent need, screening mammography is recommended, as per [employer] guidelines. BI-RADS Category 1 - Negative Breast Density - Category B - Scattered areas of fibroglandular density Breast density category C or D implies that the patient has dense breast tissue. Dense breast tissue is very common and is not abnormal but dense breast tissue can make it harder to find cancer on a ma mmogram. Also, dense breast tissue may increase their breast cancer risk. This information about the result of the mammogram report was provided to the patient to raise their awareness. Use this report when you speak with the patient about their risks for breast cancer, which includes their family hist ory. At that time, you may recommend for more screening tests (Ultrasound or MRI) as they might be us eful based on their risk. A negative radiographic report should not delay biopsy if a dominant or clinically suspicious mass is present. Up to ten percent of cancers are not identified on mammography. A negative report may reinforce clinical impression. Adenosis and dense breasts may obscure an underlying neoplasm. False positive reports average 6 to 10%. Patient will receive a letter notifying them of these results.
== END 2022-09-10 01:56 ==
PROVIDERS: PCP Nurse Practitioner Family; Visit Provider Nurse Practitioner Family
DX: Z12.31 Encounter for screening mammogram for malignant neoplasm of breast (principal); R92.8 Other abnormal and inconclusive findings on diagnostic imaging of breast
CPT/HCPCS: 77063; 77067

== ENCOUNTER 2022-10-19 09:44 | Outpatient (CLI) | payer MEDICARE, BC, SELFPAY ==
--- NOTE | 2022-10-19 09:15 | DI.RAD_ITS ---
Exam(s) XR KNEE LT 2V AP,LAT EXAM: XR KNEE LT 2V AP,LAT INDICATION: ANNUAL F/U L TKA. COMPARISON: CR XR KNEE LT 2V AP,LAT from 10/19/2021 TECHNIQUE: 2D digital imaging was performed. Two views. FINDINGS: There has been no change in the alignment of the total knee prosthesis or appearance of the surroundi ng bone. DATA REPOSITORY: RADIATION DOSE DELIVERED:
--- NOTE | 2022-10-19 09:30 | DI.RAD_ITS ---
Exam(s) XR FOOT LT COMPLETE EXAM: XR FOOT LT COMPLETE CLINICAL HISTORY: left foot pain. TECHNIQUE: 2D digital imaging was performed. Three views. COMPARISON: No exams were available for comparison FINDINGS: BONES: No acute fracture is present. No bony destructive lesion is seen. Heel spurs. JOINTS: No dislocation present. Mild hallux valgus. Valgus deviation of the 2nd through 4th toes. M ild degenerative changes, greatest at the tarsal metatarsal joints.. SOFT TISSUE: Normal. IMPRESSION: Hallux valgus and valgus deviation of the 2nd through 4th toes. DATA REPOSITORY: RADIATION DOSE DELIVERED:
== END 2022-10-19 09:45 | disposition home or self-care (01) ==
LOC: DIORS 09:45
PROVIDERS: PCP Nurse Practitioner Family; Referring Provider Nurse Practitioner Family; Visit Provider Student in an Organized Health Care Education/Training Program
DX: Z47.1 Aftercare following joint replacement surgery; Z96.652 Presence of left artificial knee joint; M21.42 Flat foot [pes planus] (acquired), left foot; M19.072 Primary osteoarthritis, left ankle and foot; M70.52 Other bursitis of knee, left knee; M17.11 Unilateral primary osteoarthritis, right knee; M76.32 Iliotibial band syndrome, left leg
CPT/HCPCS: 99214; 73560; 73630

== ENCOUNTER → 2023-01-14 09:40 | Outpatient (BNVA) | payer MEDICARE, BC, SELFPAY | PROVIDERS: PCP Nurse Practitioner Family; Referring Provider Nurse Practitioner Family; Visit Provider Student in an Organized Health Care Education/Training Program | DX: Z47.1 Aftercare following joint replacement surgery (principal); Z96.652 Presence of left artificial knee joint; M79.672 Pain in left foot | CPT/HCPCS: 99213 ==

== ENCOUNTER 2023-06-25 02:38 | Outpatient (CLI) | payer MEDICARE, BC, SELFPAY ==
[2023-06-25 08:36] LABS: Anion Gap 8.8 mmol/L (3-11); BUN 13 mg/dL (7-18); CO2 27.2 mmol/L (21.0-32.0); CREATININE 0.7 mg/dL (0.55-1.02); Calcium 9.5 mg/dL (8.5-10.1); Calculated LDL 122 mg/dL (<100); Chloride 104 mmol/L (98-107); Cholesterol 219 mg/dL (<200); Estimated GFR 93.56 (mL/min/1.73m2); Glucose 104 mg/dL (74-106); HDL Cholesterol 55 mg/dL (40-60); Potassium 4.5 mmol/L (3.5-5.1); Sodium 140 mmol/L (136-145); Triglyceride 211 mg/dL (<150)
== END 2023-06-25 02:39 | disposition home or self-care (01) ==
LOC: LBO 02:38
PROVIDERS: PCP Nurse Practitioner Family; Visit Provider Nurse Practitioner Adult Health
DX: E78.5 Hyperlipidemia, unspecified (principal)
CPT/HCPCS: 36415; 80048; 80061

== ENCOUNTER → 2023-09-11 01:41 | Outpatient (CLI) | payer MEDICARE, BC, SELFPAY ==
--- NOTE | 2023-09-11 09:12 | DI.MAMMO_ITS ---
Exam(s) MAMMO SCREENING EXAM: MAMMO SCREENING CLINICAL HISTORY: screening, Z12.39. TECHNIQUE: Bilateral full field digital CC and MLO mammographic images were obtained with 3D tomosyn thesis and utilizing computer aided detection (CAD). COMPARISON: Prior mammograms were reviewed. FINDINGS: There has been no significant change in the appearance and distribution of the fibroglandular tissue. Stable benign-appearing small nodules in both breasts remain unchanged. There are no new spiculated masses nor malignant appearing microcalcification groups. There is no significant architectural distortion nor skin thickening-retraction. IMPRESSION: No radiographic evidence of malignancy. Stable benign findings. BI-RADS Category 1 - Negative Breast Density - Category B - Scattered areas of fibroglandular density Breast density Category C or D implies that the patient has dense breast tissue. Dense breast tissue can make it harder to find cancer on a mammogram. Dense breast tissue is also associated with an incr eased risk of breast cancer. This information about the result of the mammogram report was provided to the patient to raise their awareness. Use this report when you speak with the patient about their risks for breast cancer, which includes their family history. At that time, you may recommend additional screening tests (Ultrasoun d or MRI) as these tests may add significant information. A negative radiographic report should not delay biopsy if a dominant or clinically suspicious mass is present. Up to ten percent of cancers are not identified on mammography. A negative report may reinforce clinical impression. Adenosis and dense breasts may obscure an underlying neoplasm. False positive reports average 6 to 10%. Patient will receive a letter notifying them of these results.
== END ==
PROVIDERS: PCP Nurse Practitioner Adult Health; Visit Provider Nurse Practitioner Adult Health
DX: Z12.31 Encounter for screening mammogram for malignant neoplasm of breast (principal)
CPT/HCPCS: 77063; 77067

== ENCOUNTER 2023-10-22 03:31 | Outpatient (CLI) | payer MEDICARE, BC, SELFPAY ==
[2023-10-22 08:14] LABS: Abs Immature Grans 0.02 10^3/uL (0.0-0.06); Absolute Basophil Count 0.06 10^3/uL (0.0-0.2); Absolute Eosinophil Count 0.23 10^3/uL (0.0-0.7); Absolute Lymphocyte Count 1.97 10^3/uL (1.2-3.4); Absolute Monocyte Count 0.52 10^3/uL (0.1-0.8); Basophils % 0.9; Eosinophils % 3.4; HCT 41.8 % (36.0-46.0); Immature Grans % 0.3; Lymphocytes % 29.4; MCH 30.1 pg (27.0-33.0); MCHC 33.5 % (32.0-36.0); MCV 90 fL (80-95); MPV 9.5 fL (8.0-11.0); Monocytes % 7.8; Neutrophils % 58.2; Platelet Count 294 10^3/uL (130-400); RBC 4.65 10^6/uL (3.93-5.22); RDW 14.2 % (11.7-14.6); RDW-SD 46.5 fL
[2023-10-25 16:19] LABS: Apolipoprotein B, Serum 174 mg/dL (48-124); Beta VLDL Cholesterol Not Detected mg/dL (<15); Beta VLDL Triglycerides Not Detected mg/dL (<15); Cholesterol, Total, CDC 338 mg/dL; Chylomicron Cholesterol Not Detected; Chylomicron Triglycerides Not Detected; HDL Cholesterol, CDC 51 mg/dL (>=50); LDL Cholesterol 224 mg/dL; LDL Triglycerides 70 mg/dL (<=50); Lp(a) Cholesterol <5 mg/dL (<5); LpX Not detected; Triglycerides, CDC 264 mg/dL; VLDL Cholesterol 63 mg/dL (<30); VLDL Triglycerides 168 mg/dL (<120)
== END 2023-10-22 03:32 | disposition home or self-care (01) ==
LOC: LBO 03:32
PROVIDERS: PCP Nurse Practitioner Adult Health; Visit Provider Nurse Practitioner Adult Health
DX: R42 Dizziness and giddiness (principal); E78.5 Hyperlipidemia, unspecified
CPT/HCPCS: 36415; 80061; 82172; 82664; 85025

== ENCOUNTER 2024-01-03 01:47 | Outpatient (CLI) | payer MEDICARE, BC, SELFPAY ==
[2024-01-08 16:42] LABS: Apolipoprotein B, Serum 100 mg/dL (48-124); Beta VLDL Cholesterol Not Detected mg/dL (<15); Beta VLDL Triglycerides Not Detected mg/dL (<15); Cholesterol, Total, CDC 202 mg/dL; Chylomicron Cholesterol Not Detected; Chylomicron Triglycerides Not Detected; HDL Cholesterol, CDC 44 mg/dL (>=50); LDL Cholesterol 89 mg/dL; LDL Triglycerides 59 mg/dL (<=50); Lp(a) Cholesterol <5 mg/dL (<5); LpX Not detected; Triglycerides, CDC 351 mg/dL; VLDL Cholesterol 69 mg/dL (<30); VLDL Triglycerides 246 mg/dL (<120)
== END 2024-01-03 01:48 | disposition home or self-care (01) ==
LOC: LBO 01:47
PROVIDERS: PCP Nurse Practitioner Adult Health; Visit Provider Nurse Practitioner Adult Health
DX: E78.2 Mixed hyperlipidemia (principal)
CPT/HCPCS: 36415; 80061; 82172; 82664

== ENCOUNTER 2024-03-09 03:40 | Outpatient (CLI) | payer MEDICARE, BC, SELFPAY ==
[2024-03-12 15:21] LABS: Apolipoprotein B, Serum 31 mg/dL (48-124); Beta VLDL Cholesterol Not Detected mg/dL (<15); Beta VLDL Triglycerides Not Detected mg/dL (<15); Cholesterol, Total, CDC 96 mg/dL; Chylomicron Cholesterol Not Detected; Chylomicron Triglycerides Not Detected; HDL Cholesterol, CDC 48 mg/dL (>=50); LDL Cholesterol 23 mg/dL; LDL Triglycerides 21 mg/dL (<=50); Lp(a) Cholesterol <5 mg/dL (<5); LpX Not detected; Triglycerides, CDC 168 mg/dL; VLDL Cholesterol 25 mg/dL (<30); VLDL Triglycerides 108 mg/dL (<120)
== END 2024-03-09 03:41 | disposition home or self-care (01) ==
LOC: LBO 03:40
PROVIDERS: Absent Provider Nurse Practitioner Adult Health; PCP Nurse Practitioner Adult Health; Referring Provider Nurse Practitioner Adult Health; Visit Provider Nurse Practitioner Adult Health
DX: E78.2 Mixed hyperlipidemia (principal)
CPT/HCPCS: 36415; 80061; 82172; 82664

== ENCOUNTER 2024-06-15 02:31 | Outpatient (CLI) | payer MEDICARE, BC, SELFPAY ==
[2024-06-15 08:14] LABS: Hemoglobin A1C 5.2 % (<5.7)
[2024-06-15 08:16] LABS: ALT 36 U/L (14-59); AST 22 U/L (15-37); Albumin 3.8 g/dL (3.4-5.0); Alkaline Phosphatase 98 U/L (46-116); Anion Gap 8.6 mmol/L (3-11); BUN 15 mg/dL (7-18); Bilirubin, Total 0.51 mg/dL (0.2-1.0); CO2 30.4 mmol/L (21.0-32.0); CREATININE 0.8 mg/dL (0.55-1.02); Calcium 9.1 mg/dL (8.5-10.1); Chloride 104 mmol/L (98-107); Estimated GFR 79.22 (mL/min/1.73m2); Glucose 95 mg/dL (74-106); Potassium 4.2 mmol/L (3.5-5.1); Sodium 143 mmol/L (136-145); TSH (W/Ref FT4) 1.71 uIU/mL (0.36-3.74); Total Protein 7.2 g/dL (6.4-8.2)
[2024-06-18 17:03] LABS: Apolipoprotein B, Serum 58 mg/dL (48-124); Beta VLDL Cholesterol Not Detected mg/dL (<15); Beta VLDL Triglycerides Not Detected mg/dL (<15); Cholesterol, Total, CDC 145 mg/dL; Chylomicron Cholesterol 3 mg/dL; Chylomicron Triglycerides 55 mg/dL; HDL Cholesterol, CDC 47 mg/dL (>=50); LDL Cholesterol 58 mg/dL; LDL Triglycerides 74 mg/dL (<=50); Lp(a) Cholesterol <5 mg/dL (<5); LpX Not detected; Triglycerides, CDC 272 mg/dL; VLDL Cholesterol 37 mg/dL (<30); VLDL Triglycerides 108 mg/dL (<120)
== END 2024-06-15 02:32 | disposition home or self-care (01) ==
LOC: LBO 02:31
PROVIDERS: PCP Nurse Practitioner Adult Health; Referring Provider Nurse Practitioner Adult Health; Visit Provider Nurse Practitioner Adult Health
DX: E78.2 Mixed hyperlipidemia (principal); Z51.81 Encounter for therapeutic drug level monitoring; E78.5 Hyperlipidemia, unspecified; F41.9 Anxiety disorder, unspecified
CPT/HCPCS: 36415; 80053; 80061; 82172; 82664; 83036; 84443

== ENCOUNTER 2024-12-04 09:13 | Outpatient (CLI) | payer MEDICARE, BC, SELFPAY ==
[2024-12-09 14:59] LABS: Apolipoprotein B, Serum 34 mg/dL (48-124); Beta VLDL Cholesterol Not Detected mg/dL (<15); Beta VLDL Triglycerides Not Detected mg/dL (<15); Cholesterol, Total, CDC 102 mg/dL; Chylomicron Cholesterol Not Detected; Chylomicron Triglycerides Not Detected; HDL Cholesterol, CDC 54 mg/dL (>=50); LDL Cholesterol 27 mg/dL; LDL Triglycerides 21 mg/dL (<=50); Lp(a) Cholesterol <5 mg/dL (<5); LpX Not detected; Triglycerides, CDC 128 mg/dL; VLDL Cholesterol 21 mg/dL (<30); VLDL Triglycerides 82 mg/dL (<120)
== END 2024-12-04 09:14 | disposition home or self-care (01) ==
LOC: LBO 09:13
PROVIDERS: PCP Nurse Practitioner Adult Health; Visit Provider Nurse Practitioner Adult Health
DX: E78.5 Hyperlipidemia, unspecified (principal)
CPT/HCPCS: 36415; 80061; 82172; 82664

== ENCOUNTER 2025-01-22 00:17 | Outpatient (CLI) | payer MEDICARE, BC, SELFPAY ==
--- NOTE | 2025-01-22 06:15 | DI.DEXA_ITS ---
Exam(s) XR DEXA BONE DENSITY W/WO SIDNEY EXAM: XR DEXA BONE DENSITY W/WO SIDNEY CLINICAL HISTORY: Monitor bone density,osteopenia,screening for osteoporosis in post TECHNIQUE: Routine DEXA evaluation of the lumbar spine, hip, or forearm. COMPARISON: Prior DEXA scan of October 2018 FINDINGS: Performed on a Hologic unit. Lateral image: No compression fracture evident. Lumbar Spine total T-score: -1.8 which is osteopenia range. Prior reading in 2019 was -2.3. Hip total T-score:-2.7 which is in the osteoporosis range. Prior reading 2019 was -2.1 Independent reading at the level of the femoral neck yields T-score of -3.9 which is in osteoporosis range. Forearm total T-score: -2.4 which is osteopenia range. IMPRESSION: Bone mineral density measures in the osteoporosis range for the hip. Fracture risk is high. Bone mi neral density measures in the osteopenia range for the lumbar spine and forearm. Fracture risk is mo derate at these levels. Note: Any spine fracture indicates 5x risk for subsequent spine fracture and 2x risk for subsequent h ip fracture. World Health Organization criteria for BMD interpretation classify patients: Normal...... T- Score at or above -1.0 Osteopenic... T- Score between -1.0 and -2.5 Osteoporosis... T-Score at or below -2.5
--- NOTE | 2025-01-22 08:30 | DI.MAMMO_ITS ---
Exam(s) MAMMO SCREENING EXAM: MAMMO SCREENING CLINICAL HISTORY: screening,z12.39. TECHNIQUE: Bilateral full field digital CC and MLO mammographic images were obtained with 3D tomosyn thesis and utilizing computer aided detection (CAD). COMPARISON: Prior mammograms were reviewed. FINDINGS: There has been no significant change in the appearance and distribution of the fibroglandular tissue. Stable benign-appearing nodules both breasts remain unchanged. There are no new spiculated masses nor malignant appearing microcalcification groups. There is no significant architectural distortion nor skin thickening-retraction. IMPRESSION: No radiographic evidence of malignancy. Stable benign findings. BI-RADS Category 2 - Benign Findings Breast Density - Category B - There are scattered areas of fibroglandular density. Breast density Category C or D implies that the patient has dense breast tissue. Dense breast tissue can make it harder to find cancer on a mammogram. Dense breast tissue is also associated with an incr eased risk of breast cancer. This information about the result of the mammogram report was provided to the patient to raise their awareness. Use this report when you speak with the patient about their risks for breast cancer, which includes their family history. At that time, you may recommend additional screening tests (Ultrasoun d or MRI) as these tests may add significant information. A negative radiographic report should not delay biopsy if a dominant or clinically suspicious mass is present. Up to ten percent of cancers are not identified on mammography. A negative report may reinforce clinical impression. Adenosis and dense breasts may obscure an underlying neoplasm. False positive reports average 6 to 10%. Patient will receive a letter notifying them of these results.
== END 2025-01-22 00:37 ==
LOC: DI 00:17
PROVIDERS: PCP Nurse Practitioner Adult Health; Visit Provider Nurse Practitioner Adult Health
DX: Z78.0 Asymptomatic menopausal state (principal); M81.0 Age-related osteoporosis without current pathological fracture; Z12.31 Encounter for screening mammogram for malignant neoplasm of breast
CPT/HCPCS: 77063; 77067; 77080